=== PATIENT | male | born 1950 | race Caucasian/White ===

== ENCOUNTER → 2016-05-05 | Outpatient (REF) | payer OTHER ==
[2016-05-05 13:18] LABS: BASO % 0.3 % (0.0-1.0); EOS # 0.1 K/mm3 (0.0-0.50); EOS % 1.4 % (0.0-3.0); LARGE UNSTAINED CELL # 0.1 K/mm3 (0.0-0.4); LARGE UNSTAINED CELL % 1.9 % (0.0-4.0); LYMPH # 0.7 K/mm3 (1.5-4.5); LYMPH % 15.4 % (24.0-44.0); MEAN CORPUSCULAR HEMOGLOBIN 29.2 pg (27.0-33.0); MEAN CORPUSCULAR HGB CONC 32.8 g/dl (32.0-36.5); MEAN CORPUSCULAR VOLUME 88.9 fl (80.0-96.0); MONO # 0.3 K/mm3 (0.0-0.8); MONO % 7.4 % (0.0-5.0); NEUTROPHILS # 3.2 K/mm3 (1.8-7.7); NEUTROPHILS % 73.7 % (36.0-66.0); PLATELET COUNT, AUTOMATED 165 k/mm3 (150-450); RED CELL DISTRIBUTION WIDTH 13.8 % (11.5-14.5); WHITE BLOOD COUNT 4.3 K/mm3 (4.0-10.0)
[2016-05-05 14:12] LABS: ALBUMIN 3.3 GM/DL (3.2-5.2); ALBUMIN/GLOBULIN RATIO 0.87 (1.00-1.93); BILIRUBIN,TOTAL 0.4 MG/DL (0.2-1.0); CALCIUM LEVEL 8.7 MG/DL (8.8-10.2); CREATININE FOR GFR 1.5 MG/DL (0.70-1.30); GLOMERULAR FILTRATION RATE 50.2 (>49); POTASSIUM SERUM 3.2 MEQ/L (3.5-5.1); TOTAL PROTEIN 7.1 GM/DL (6.4-8.2)
== END ==
LOC: M LABDRAW1 12:57
PROVIDERS: ATTEND Internal Medicine Hematology & Oncology
DX: C64.9 Malignant neoplasm of unspecified kidney, except renal pelvis (principal)

== ENCOUNTER → 2016-06-24 | Outpatient (CLI) | payer BC, OTHER ==
[~2016-06-24] VITALS: Ht 180.3 cm; Wt 108.9 kg
[~2016-06-24] MED LIST: ASPI81TA85 PO; ATOR1TAB21 PO; CLAR5TAB PO; CO Q200C PO; FISH100049 PO; GLIM4TAB PO; INVO100T PO; METF-700 PO; NS 1,000 ML IV SCH; OPDI1INJ IV; PANT40TA2 PO; PLAV75TA38 PO; PROPOFOL 200 MG/20 ML VIAL As Ordered ONE; TOPR50TA PO; VALS1TAB47 PO; VITA100072 PO; VITA1CAP7 PO; [UNRECOGNIZED DRUG - CODE] PO; [UNRECOGNIZED DRUG - OTHER] PO
--- NOTE | 2016-06-24 10:47 | ROOR ---
Patient Name: Abimael Jamison Procedure Date: 06/24/2016 10:28 AM Date of : 1950 Age: 66 Room: [facility] Gender: Male Note Status: Finalized Procedure: Colonoscopy Indications: Screening for colorectal malignant neoplasm Providers: DO Moon Blanco MD: PABLO SOUZA MD Requesting Provider: Medicines: Propofol per Anesthesia Complications: No immediate complications. Estimated blood loss: None. Procedure: Pre-Anesthesia Assessment: - Prior to the procedure, a History and Physical was performed, and patient medications and allergies were reviewed. The patient is competent. The risks and benefits of the procedure and the sedation options and risks were discussed with the patient. All questions were answered and informed consent was obtained. Patient identification and proposed procedure were verified by the physician, the nurse, the anesthesiologist and the field technician in the endoscopy suite. Mental Status Examination: alert and oriented. Airway Examination: normal oropharyngeal airway and neck mobility. Respiratory Examination: clear to auscultation. CV Examination: normal. Prophylactic Antibiotics: The patient does not require prophylactic antibiotics. Prior Anticoagulants: The patient has taken aspirin, last dose was 1 day prior to procedure. ASA Grade Assessment: III - A patient with severe systemic disease. After reviewing the risks and benefits, the patient was deemed in satisfactory condition to undergo the procedure. The anesthesia plan was to use monitored anesthesia care (MAC). Immediately prior to administration of medications, the patient was re-assessed for adequacy to receive sedatives. The heart rate, respiratory rate, oxygen saturations, blood pressure, adequacy of pulmonary ventilation, and response to care were monitored throughout the procedure. The physical status of the patient was re-assessed after the procedure. The Colonoscope was introduced through the anus and advanced to the cecum, identified by the appendiceal orifice, ileocecal valve and palpation. The colonoscopy was performed without difficulty. The patient tolerated the procedure well. Findings: The perianal exam findings include non-thrombosed internal hemorrhoids and internal hemorrhoids that prolapse with straining, but spontaneously regress to the resting position (Grade II). Impression: - Non-thrombosed internal hemorrhoids and internal hemorrhoids that prolapse with straining, but spontaneously regress to the resting position (Grade II) found on perianal exam. - No specimens collected. Recommendation: - Patient has a contact number available for emergencies. The signs and symptoms of potential delayed complications were discussed with the patient. Return to normal activities tomorrow. Written discharge instructions were provided to the patient. - Patient has a contact number available for emergencies. The signs and symptoms of potential delayed complications were discussed with the patient. Return to normal activities tomorrow. Written discharge instructions were provided to the patient. - Repeat colonoscopy in 5-10 years for screening purposes. - Return to my office PRN. Kendrick Rai DO 06/24/2016 10:47:23 AM This report has been signed electronically. Number of Addenda: 0 Note Initiated On: 06/24/2016 10:28 AM Estimated Blood Loss: Estimated blood loss: none.
[2016-06-24 11:05] VITALS: BP 137/78
== END | disposition home or self-care (01) ==
LOC: M OPP 08:51
PROVIDERS: ATTEND Surgery
DX: Z12.11 Encounter for screening for malignant neoplasm of colon (principal); K64.1 Second degree hemorrhoids; K64.8 Other hemorrhoids; C64.1 Malignant neoplasm of right kidney, except renal pelvis; C78.01 Secondary malignant neoplasm of right lung; I10 Essential (primary) hypertension; E78.00 Pure hypercholesterolemia, unspecified; E11.9 Type 2 diabetes mellitus without complications; Z87.891 Personal history of nicotine dependence; Z95.5 Presence of coronary angioplasty implant and graft; Z79.82 Long term (current) use of aspirin; Z79.899 Other long term (current) drug therapy; Z79.84 Long term (current) use of oral hypoglycemic drugs
CPT/HCPCS: 99156; 99157; G0121

== ENCOUNTER → 2016-08-12 | Outpatient (REF) | payer BC, OTHER ==
[~2016-08-12] MED LIST changes: -NS 1,000 ML IV SCH; -PROPOFOL 200 MG/20 ML VIAL As Ordered ONE
== END ==
LOC: M LABDRAW1 11:44
PROVIDERS: ATTEND Physician Assistant Medical
DX: I25.10 Atherosclerotic heart disease of native coronary artery without angina pectoris (principal)

== ENCOUNTER → 2016-08-19 | Outpatient (REF) | payer BC, OTHER ==
[2016-08-19 13:00] LABS: BILIRUBIN,TOTAL 0.3 MG/DL (0.2-1.0); CALCIUM LEVEL 8.8 MG/DL (8.8-10.2); CREATININE FOR GFR 1.53 MG/DL (0.70-1.30); POTASSIUM SERUM 4.6 MEQ/L (3.5-5.1)
[2016-08-19 13:01] LABS: ALBUMIN 3.6 GM/DL (3.2-5.2); ALBUMIN/GLOBULIN RATIO 1.09 (1.00-1.93); TOTAL PROTEIN 6.9 GM/DL (6.4-8.2)
== END ==
LOC: M LABDRAW1 11:36
PROVIDERS: ATTEND Emergency Medicine
DX: E11.9 Type 2 diabetes mellitus without complications (principal); I10 Essential (primary) hypertension; E78.2 Mixed hyperlipidemia

== ENCOUNTER → 2016-11-20 | Outpatient (CLI) | payer BC, OTHER ==
[~2016-11-20] MED LIST changes: -CO Q200C PO; +CO Q200C10 PO; +PLAV1TAB2 PO; -PLAV75TA38 PO
[2016-11-20 09:34] LABS: ALBUMIN 3.9 GM/DL (3.2-5.2); ALBUMIN/GLOBULIN RATIO 1.03 (1.00-1.93); BILIRUBIN,TOTAL 0.5 MG/DL (0.2-1.0); CALCIUM LEVEL 9.5 MG/DL (8.8-10.2); CREATININE FOR GFR 1.47 MG/DL (0.70-1.30); GLOMERULAR FILTRATION RATE 51.3 (>49); POTASSIUM SERUM 4.6 MEQ/L (3.5-5.1); TOTAL PROTEIN 7.7 GM/DL (6.4-8.2)
== END ==
LOC: M WUC 08:02
PROVIDERS: ATTEND Emergency Medicine
DX: E11.9 Type 2 diabetes mellitus without complications (principal)

== ENCOUNTER → 2017-06-14 | Outpatient (REF) | payer BC, OTHER ==
[2017-06-14 13:06] LABS: ALBUMIN 3.6 GM/DL (3.2-5.2); ALBUMIN/GLOBULIN RATIO 0.97 (1.00-1.93); ALKALINE PHOSPHATASE 86 U/L (45-117); ALT/SGPT 18 U/L (12-78); ANION GAP 10 MEQ/L (8-16); AST/SGOT 10 U/L (7-37); BILIRUBIN,TOTAL 0.4 MG/DL (0.2-1.0); BLOOD UREA NITROGEN 22 MG/DL (7-18); CALCIUM LEVEL 9.4 MG/DL (8.8-10.2); CARBON DIOXIDE LEVEL 26 MEQ/L (21-32); CHLORIDE LEVEL 103 MEQ/L (98-107); CHOLESTEROL LEVEL 142 MG/DL (<200); CHOLESTEROL RISK RATIO 3.155 (<5); CREATININE FOR GFR 1.38 MG/DL (0.70-1.30); GLOMERULAR FILTRATION RATE 55.1 (>49); GLUCOSE, FASTING 184 MG/DL (70-100); HDL CHOLESTEROL 45 MG/DL (>40); LDL CHOLESTEROL 76.4 MG/DL (<100); NON-HDL-C 97 MG/DL; POTASSIUM SERUM 4.4 MEQ/L (3.5-5.1); SODIUM LEVEL 139 MEQ/L (136-145); TOTAL PROTEIN 7.3 GM/DL (6.4-8.2); TRIGLYCERIDES LEVEL 103 MG/DL (<150)
[2017-06-14 13:14] LABS: ESTIMATED AVERAGE GLUCOSE 194 MG/DL (60-110); HEMOGLOBIN A1c 8.4 %
[2017-06-14 13:33] LABS: MALB URINE SIEMENS 44.1 MG/L; MAU/CREAT RATIO 35.8 MCG/MG (0.0-30.0)
== END ==
LOC: M LAB REF 11:58
DX: E11.9 Type 2 diabetes mellitus without complications (principal); I10 Essential (primary) hypertension; E78.2 Mixed hyperlipidemia
CPT/HCPCS: 80053

== ENCOUNTER 2017-09-20 15:30 | Emergency (ER) | payer MEDICARE, BC, OTHER ==
[2017-09-20 14:33] LABS: BASO # 0.1 10^3/uL (0.0-0.2); BASO % 0.6 % (0.0-1.0); EOS # 0.2 10^3/uL (0.0-0.50); EOS % 2.2 % (0.0-3.0); HEMATOCRIT 42.1 % (42.0-52.0); HEMOGLOBIN 14.4 g/dl (13.5-17.5); IMMATURE GRANULOCYTE % 0.2 % (0-3.0); LYMPH # 1.7 10^3/uL (1.5-4.5); LYMPH % 19.1 % (24.0-44.0); MEAN CORPUSCULAR HEMOGLOBIN 27.5 pg (27.0-33.0); MEAN CORPUSCULAR HGB CONC 34.2 g/dl (32.0-36.5); MEAN CORPUSCULAR VOLUME 80.5 fl (80.0-96.0); MONO # 0.4 10^3/uL (0.0-0.8); MONO % 4.9 % (0.0-5.0); NEUTROPHILS # 6.6 10^3/uL (1.8-7.7); PLATELET COUNT, AUTOMATED 253 10^3/uL (150-450); RED BLOOD COUNT 5.23 10^6/uL (4.30-6.10)
[2017-09-20 15:12] LABS: ANION GAP 9 MEQ/L (8-16); BLOOD UREA NITROGEN 15 MG/DL (7-18); CALCIUM LEVEL 8.9 MG/DL (8.8-10.2); CARBON DIOXIDE LEVEL 24 MEQ/L (21-32); CHLORIDE LEVEL 102 MEQ/L (98-107); CK-MB VALUE MASS 2.5 NG/ML (<3.6); CPK CREATINE PHOSPHOKINASE 234 U/L (39-308); CREATININE FOR GFR 1.59 MG/DL (0.70-1.30); GLOMERULAR FILTRATION RATE 46.7 (>49); GLUCOSE, FASTING 164 MG/DL (70-100); MB/CK RELATIVE INDEX 1.06 (< OR =4); POTASSIUM SERUM 3.7 MEQ/L (3.5-5.1); SODIUM LEVEL 135 MEQ/L (136-145); TROPONIN I < 0.02 NG/ML (< 0.10)
== END 2017-09-20 17:53 | disposition short-term general hospital (02) ==
LOC: M ED 15:30
DX: I20.0 Unstable angina (principal); R91.8 Other nonspecific abnormal finding of lung field; I25.10 Atherosclerotic heart disease of native coronary artery without angina pectoris; I50.9 Heart failure, unspecified; E11.9 Type 2 diabetes mellitus without complications; I10 Essential (primary) hypertension; E78.5 Hyperlipidemia, unspecified; Z85.528 Personal history of other malignant neoplasm of kidney; Z85.118 Personal history of other malignant neoplasm of bronchus and lung; Z95.5 Presence of coronary angioplasty implant and graft; Z72.0 Tobacco use; Z79.82 Long term (current) use of aspirin; Z79.84 Long term (current) use of oral hypoglycemic drugs; Z79.899 Other long term (current) drug therapy
CPT/HCPCS: 71045

== ENCOUNTER 2017-11-03 14:10 | Inpatient (IN) | payer MEDICARE, BC, OTHER ==
[2017-11-03] MEDS: NS 500 ML IV (14:58)
[2017-11-03 15:07] LABS: BASO % 0.2 % (0.0-1.0); HEMATOCRIT 33.6 % (42.0-52.0); HEMOGLOBIN 12.1 g/dl (13.5-17.5); IMMATURE GRANULOCYTE % 0.4 % (0-3.0); LYMPH # 0.3 10^3/uL (1.5-4.5); LYMPH % 5.5 % (24.0-44.0); MEAN CORPUSCULAR HEMOGLOBIN 29.2 pg (27.0-33.0); MEAN CORPUSCULAR VOLUME 81.2 fl (80.0-96.0); MONO # 0.1 10^3/uL (0.0-0.8); MONO % 1.9 % (0.0-5.0); NEUTROPHILS # 4.8 10^3/uL (1.8-7.7); PLATELET COUNT, AUTOMATED 147 10^3/uL (150-450); RED BLOOD COUNT 4.14 10^6/uL (4.30-6.10); RED CELL DISTRIBUTION WIDTH 17.3 % (11.5-14.5); WHITE BLOOD COUNT 5.2 10^3/uL (4.0-10.0)
[2017-11-03 15:20] LABS: ANION GAP 14 MEQ/L (8-16); BLOOD UREA NITROGEN 21 MG/DL (7-18); CALCIUM LEVEL 8.4 MG/DL (8.8-10.2); CARBON DIOXIDE LEVEL 20 MEQ/L (21-32); CHLORIDE LEVEL 88 MEQ/L (98-107); CPK CREATINE PHOSPHOKINASE 859 U/L (39-308); CREATININE FOR GFR 1.71 MG/DL (0.70-1.30); GLUCOSE, FASTING 158 MG/DL (70-100); POTASSIUM SERUM 3.5 MEQ/L (3.5-5.1); SODIUM LEVEL 122 MEQ/L (136-145); TROPONIN I < 0.02 NG/ML (< 0.10)
[2017-11-03 15:21] LABS: CK-MB VALUE MASS 2.2 NG/ML (<3.6); MB/CK RELATIVE INDEX 0.25 (< OR =4)
[2017-11-03 15:26] LABS: POSITIVE DIFF POS FLAG
[2017-11-03 16:12] LABS: OSMOLALITY SERUM 262 MOSM/KG (280-301)
[2017-11-03 16:17] LABS: OSMOLALITY URINE 545 MOSM/KG (500-800)
[2017-11-03 16:19] LABS: AMORPHOUS SEDIMENT RFX SMALL (NEGATIVE); KETONE, URINE AUTO RFX NEGATIVE (NEGATIVE); LEUKOCYTE ESTERASE UR AUTO RFX NEGATIVE (NEGATIVE); MUCUS, URINE RFX SMALL (NEGATIVE); NITRITE, URINE AUTO RFX NEGATIVE (NEGATIVE); RBC, URINE AUTO RFX 6 /HPF (0-3); SPECIFIC GRAVITY UR AUTO RFX 1.017 (1.002-1.035); SQUAM EPITHELIAL CELL UR AURFX 0 /HPF (0-6); WBC, URINE AUTO RFX 3 /HPF (0-3)
[2017-11-03 16:26] LABS: SODIUM,RANDOM URINE 40 MEQ/L
[2017-11-03 16:34] LABS: FREE T4 1.54 NG/DL (0.76-1.46)
[2017-11-03] MEDS ORDERED: GLUCOSE 4 GM CHEW TABLET PO (18:30)
[2017-11-03] MEDS ORDERED: GLUCAGON FOR INJ 1 MG VIAL (J1610) SC (18:30)
[2017-11-03] MEDS ORDERED: DEXTROSE 50% 50 ML SYRINGE IV (18:30)
[2017-11-03] MEDS ORDERED: NYSTATIN 100,000 UNITS/GM TOPICAL PWD 15 GM TOP (18:45)
[2017-11-03] MEDS: ACETAMINOPHEN TAB 650MG DOSE (2X325MG) PO (18:46)
[2017-11-03] MEDS: NS 1,000 ML IV (18:46)
[2017-11-03] MEDS ORDERED: VANCOMYCIN HCL 1,000 MG, VIAL MATE ADAPTER 1 EACH in D5W 250 ML IV ×2 (19:15→21:30)
[2017-11-03 19:52] LABS: LACTIC ACID SEPSIS PROTOCOL 1.1 MMOL/L (0.4-2.0)
[2017-11-03] MEDS: PIPERACILLIN/TAZOBACTAM SOD 3.375 GM in D5W MINI-BAG PLUS 50 ML IV (20:33)
[2017-11-03] MEDS: HumaLOG INSULIN (NovoLOG) PER UNIT SC (21:00)
[2017-11-03] MEDS: HEPARIN SOD (PORCINE) 5000 UNITS/ML VIAL SC (22:00)
[2017-11-03] MEDS: metroNIDAZOLE (FLAGYL) 500 MG TAB PO (22:11)
[2017-11-03] MEDS: VANCOMYCIN HCL 1,000 MG, VIAL MATE ADAPTER 1 EACH in D5W 250 ML IV (22:12)
[2017-11-03] MEDS: FLUTICASONE HFA 220 MCG 12 GM INHALER (FLOVENT) INH (22:22)
[2017-11-03 22:41] LABS: BEDSIDE GLUCOSE 108 MG/DL (80-115)
[2017-11-04] MEDS: VANCOMYCIN HCL 1,000 MG, VIAL MATE ADAPTER 1 EACH in D5W 250 ML IV ×2 (00:01→10:07)
[2017-11-04 00:53] LABS: INFLUENZA A AMPLIFICATION NEGATIVE (NEGATIVE); INFLUENZA B AMPLIFICATION NEGATIVE (NEGATIVE)
[2017-11-04] MEDS: PIPERACILLIN/TAZOBACTAM SOD 3.375 GM in D5W MINI-BAG PLUS 50 ML IV ×3 (04:13→20:33)
[2017-11-04] MEDS: HEPARIN SOD (PORCINE) 5000 UNITS/ML VIAL SC ×2 (05:00→13:51)
[2017-11-04] MEDS: NS 1,000 ML IV (05:44)
[2017-11-04] MEDS: metroNIDAZOLE (FLAGYL) 500 MG TAB PO (05:44)
[2017-11-04] MEDS: ACETAMINOPHEN TAB 650MG DOSE (2X325MG) PO ×2 (05:45→17:01)
[2017-11-04] MEDS: MORPHINE 4 MG/ML 1ML VIAL/SYRINGE (J2270) IV (05:45)
[2017-11-04 05:53] LABS: EOS % 0.3 % (0.0-3.0); HEMATOCRIT 28.2 % (42.0-52.0); HEMOGLOBIN 10.2 g/dl (13.5-17.5); IMMATURE GRANULOCYTE % 0.3 % (0-3.0); LYMPH % 5.8 % (24.0-44.0); MEAN CORPUSCULAR HGB CONC 36.2 g/dl (32.0-36.5); MEAN CORPUSCULAR VOLUME 80.1 fl (80.0-96.0); MONO # 0.1 10^3/uL (0.0-0.8); MONO % 3.4 % (0.0-5.0); NEUTROPHILS # 2.6 10^3/uL (1.8-7.7); NEUTROPHILS % 90.2 % (36.0-66.0); PLATELET COUNT, AUTOMATED 118 10^3/uL (150-450); RED BLOOD COUNT 3.52 10^6/uL (4.30-6.10); RED CELL DISTRIBUTION WIDTH 17.4 % (11.5-14.5); WHITE BLOOD COUNT 2.9 10^3/uL (4.0-10.0)
[2017-11-04 05:57] LABS: LYMPH # 0.2 10^3/uL (1.5-4.5); POSITIVE DIFF POS FLAG
[2017-11-04 06:21] LABS: ALBUMIN 2.4 GM/DL (3.2-5.2); ALBUMIN/GLOBULIN RATIO 0.62 (1.00-1.93); ALKALINE PHOSPHATASE 75 U/L (45-117); ALT/SGPT 51 U/L (12-78); ANION GAP 13 MEQ/L (8-16); AST/SGOT 80 U/L (7-37); BILIRUBIN,TOTAL 1.4 MG/DL (0.2-1.0); BLOOD UREA NITROGEN 19 MG/DL (7-18); CALCIUM LEVEL 7.5 MG/DL (8.8-10.2); CARBON DIOXIDE LEVEL 22 MEQ/L (21-32); CHLORIDE LEVEL 91 MEQ/L (98-107); CHLORIDE LEVEL 92 MEQ/L (98-107); CPK CREATINE PHOSPHOKINASE 771 U/L (39-308); CREATININE FOR GFR 1.53 MG/DL (0.70-1.30); CREATININE FOR GFR 1.54 MG/DL (0.70-1.30); GLOMERULAR FILTRATION RATE 48.5 (>49); GLOMERULAR FILTRATION RATE 48.9 (>49); GLUCOSE, FASTING 114 MG/DL (70-100); GLUCOSE, FASTING 115 MG/DL (70-100); POTASSIUM SERUM 3.1 MEQ/L (3.5-5.1); POTASSIUM SERUM 3.2 MEQ/L (3.5-5.1); SODIUM LEVEL 126 MEQ/L (136-145); SODIUM LEVEL 127 MEQ/L (136-145); TOTAL PROTEIN 6.3 GM/DL (6.4-8.2)
[2017-11-04] MEDS: FLUTICASONE HFA 220 MCG 12 GM INHALER (FLOVENT) INH ×2 (07:33→21:00)
[2017-11-04] MEDS: HumaLOG INSULIN (NovoLOG) PER UNIT SC ×4 (07:56→21:00)
[2017-11-04] MEDS: CLOPIDOGREL 75 MG TAB PO (08:29)
[2017-11-04] MEDS: PANTOPRAZOLE 40MG TAB (PROTONIX) PO (08:29)
[2017-11-04] MEDS: VITAMIN D 1,000 INTERNATIONAL UNITS TABLET PO (08:29)
[2017-11-04] MEDS: ASPIRIN 81 MG ENTERIC TAB PO (08:29)
[2017-11-04] MEDS: OMEGA-3 1050MG CAPSULE PO (08:29)
[2017-11-04] MEDS: DESLORATADINE 5 MG TAB (CLARINEX) PO (08:30)
[2017-11-04] MEDS: METOPROLOL SUCC (TopROL XL) 50MG **XL** TAB PO (08:30)
[2017-11-04] MEDS: POTASSIUM CHLORIDE 10 MEQ SR TABLET PO (10:06)
[2017-11-04 10:53] LABS: ALBUMIN 2.5 GM/DL (3.2-5.2); ALBUMIN/GLOBULIN RATIO 0.76 (1.00-1.93); ALKALINE PHOSPHATASE 82 U/L (45-117); ALT/SGPT 54 U/L (12-78); AST/SGOT 87 U/L (7-37); BILIRUBIN,DIRECT 0.7 MG/DL (0.0-0.2); BILIRUBIN,TOTAL 1.3 MG/DL (0.2-1.0); MAGNESIUM LEVEL 1.5 MG/DL (1.8-2.4); TOTAL PROTEIN 5.8 GM/DL (6.4-8.2)
[2017-11-04 11:57] LABS: BEDSIDE GLUCOSE 147 MG/DL (80-115)
[2017-11-04] MEDS: MAG SULF 1GM/100ML (MAG RUN) 1 GM in APPROPRIATE DILUENT 1 EA IV ×3 (14:48→17:01)
[2017-11-04] MEDS: ENOXAPARIN 40 MG/0.4 ML SYRINGE (J1650) SC (15:58)
[2017-11-04 16:39] LABS: BEDSIDE GLUCOSE 152 MG/DL (80-115)
[2017-11-04 19:49] LABS: BEDSIDE GLUCOSE 197 MG/DL (80-115)
[2017-11-05] MEDS: ACETAMINOPHEN TAB 650MG DOSE (2X325MG) PO ×2 (02:28→17:53)
[2017-11-05] MEDS: PIPERACILLIN/TAZOBACTAM SOD 3.375 GM in D5W MINI-BAG PLUS 50 ML IV ×2 (05:25→12:48)
[2017-11-05 06:33] LABS: HEMATOCRIT 28.4 % (42.0-52.0); HEMOGLOBIN 10.3 g/dl (13.5-17.5); MEAN CORPUSCULAR HEMOGLOBIN 29.6 pg (27.0-33.0); MEAN CORPUSCULAR HGB CONC 36.3 g/dl (32.0-36.5); MEAN CORPUSCULAR VOLUME 81.6 fl (80.0-96.0); PLATELET COUNT, AUTOMATED 115 10^3/uL (150-450); RED BLOOD COUNT 3.48 10^6/uL (4.30-6.10); RED CELL DISTRIBUTION WIDTH 17.3 % (11.5-14.5); WHITE BLOOD COUNT 2.7 10^3/uL (4.0-10.0)
[2017-11-05 06:58] LABS: ALBUMIN 2.4 GM/DL (3.2-5.2); ALBUMIN/GLOBULIN RATIO 0.62 (1.00-1.93); ALKALINE PHOSPHATASE 140 U/L (45-117); ALT/SGPT 77 U/L (12-78); ANION GAP 13 MEQ/L (8-16); AST/SGOT 103 U/L (7-37); BILIRUBIN,DIRECT 0.6 MG/DL (0.0-0.2); BILIRUBIN,TOTAL 1.2 MG/DL (0.2-1.0); BLOOD UREA NITROGEN 21 MG/DL (7-18); CALCIUM LEVEL 7.8 MG/DL (8.8-10.2); CARBON DIOXIDE LEVEL 21 MEQ/L (21-32); CHLORIDE LEVEL 90 MEQ/L (98-107); GLUCOSE, FASTING 157 MG/DL (70-100); POTASSIUM SERUM 3.7 MEQ/L (3.5-5.1); SODIUM LEVEL 124 MEQ/L (136-145); TOTAL PROTEIN 6.3 GM/DL (6.4-8.2)
[2017-11-05 07:07] LABS: CREATININE FOR GFR 2.37 MG/DL (0.70-1.30); GLOMERULAR FILTRATION RATE 29.5 (>49)
[2017-11-05] MEDS: FLUTICASONE HFA 220 MCG 12 GM INHALER (FLOVENT) INH ×2 (07:21→20:35)
[2017-11-05] MEDS: ONDANSETRON 4MG/2ML VIAL (J2405) IV (09:41)
[2017-11-05] MEDS: HumaLOG INSULIN (NovoLOG) PER UNIT SC ×4 (09:43→20:36)
[2017-11-05] MEDS: ENOXAPARIN 40 MG/0.4 ML SYRINGE (J1650) SC (09:43)
[2017-11-05] MEDS: VITAMIN D 1,000 INTERNATIONAL UNITS TABLET PO (09:44)
[2017-11-05] MEDS: CLOPIDOGREL 75 MG TAB PO (09:44)
[2017-11-05] MEDS: METOPROLOL SUCC (TopROL XL) 50MG **XL** TAB PO (09:44)
[2017-11-05] MEDS: PANTOPRAZOLE 40MG TAB (PROTONIX) PO (09:44)
[2017-11-05] MEDS: DESLORATADINE 5 MG TAB (CLARINEX) PO (09:44)
[2017-11-05] MEDS: OMEGA-3 1050MG CAPSULE PO (09:44)
[2017-11-05] MEDS: ASPIRIN 81 MG ENTERIC TAB PO (09:45)
[2017-11-05] MEDS: NS 1,000 ML IV ×2 (11:09→20:49)
[2017-11-05 11:24] LABS: MAGNESIUM LEVEL 2.6 MG/DL (1.8-2.4)
[2017-11-05 11:30] LABS: BEDSIDE GLUCOSE 179 MG/DL (80-115)
[2017-11-05 16:52] LABS: BEDSIDE GLUCOSE 232 MG/DL (80-115)
[2017-11-05 19:38] LABS: BEDSIDE GLUCOSE 231 MG/DL (80-115)
[2017-11-05 20:26] LABS: ANION GAP 11 MEQ/L (8-16); BLOOD UREA NITROGEN 25 MG/DL (7-18); CARBON DIOXIDE LEVEL 21 MEQ/L (21-32); CHLORIDE LEVEL 94 MEQ/L (98-107); CREATININE FOR GFR 2.63 MG/DL (0.70-1.30); GLOMERULAR FILTRATION RATE 26.2 (>49); GLUCOSE, FASTING 201 MG/DL (70-100); POTASSIUM SERUM 3.4 MEQ/L (3.5-5.1); SODIUM LEVEL 126 MEQ/L (136-145)
[2017-11-05] MEDS: PIPERACILLIN/TAZOBACTAM SOD 2.25 GM in D5W MINI-BAG PLUS 50 ML IV (20:49)
[2017-11-06] MEDS: PIPERACILLIN/TAZOBACTAM SOD 2.25 GM in D5W MINI-BAG PLUS 50 ML IV ×4 (02:12→21:45)
[2017-11-06 06:00] LABS: HEMATOCRIT 27.9 % (42.0-52.0); MEAN CORPUSCULAR HEMOGLOBIN 29.2 pg (27.0-33.0); MEAN CORPUSCULAR HGB CONC 35.8 g/dl (32.0-36.5); MEAN CORPUSCULAR VOLUME 81.3 fl (80.0-96.0); PLATELET COUNT, AUTOMATED 110 10^3/uL (150-450); RED BLOOD COUNT 3.43 10^6/uL (4.30-6.10); RED CELL DISTRIBUTION WIDTH 17.2 % (11.5-14.5)
[2017-11-06] MEDS: ACETAMINOPHEN TAB 650MG DOSE (2X325MG) PO (06:07)
[2017-11-06 06:23] LABS: ANION GAP 11 MEQ/L (8-16); BLOOD UREA NITROGEN 25 MG/DL (7-18); CALCIUM LEVEL 7.1 MG/DL (8.8-10.2); CARBON DIOXIDE LEVEL 21 MEQ/L (21-32); CHLORIDE LEVEL 96 MEQ/L (98-107); CREATININE FOR GFR 2.87 MG/DL (0.70-1.30); GLOMERULAR FILTRATION RATE 23.6 (>49); GLUCOSE, FASTING 148 MG/DL (70-100); POTASSIUM SERUM 3.3 MEQ/L (3.5-5.1); SODIUM LEVEL 128 MEQ/L (136-145)
[2017-11-06] MEDS: VITAMIN D 1,000 INTERNATIONAL UNITS TABLET PO (08:08)
[2017-11-06] MEDS: CLOPIDOGREL 75 MG TAB PO (08:09)
[2017-11-06] MEDS: PANTOPRAZOLE 40MG TAB (PROTONIX) PO (08:09)
[2017-11-06] MEDS: POTASSIUM CHLORIDE 10 MEQ SR TABLET PO (08:09)
[2017-11-06] MEDS: ASPIRIN 81 MG ENTERIC TAB PO (08:10)
[2017-11-06] MEDS: OMEGA-3 1050MG CAPSULE PO (08:10)
[2017-11-06] MEDS: DESLORATADINE 5 MG TAB (CLARINEX) PO (08:13)
[2017-11-06] MEDS: METOPROLOL SUCC (TopROL XL) 50MG **XL** TAB PO (08:13)
[2017-11-06] MEDS: ENOXAPARIN 40 MG/0.4 ML SYRINGE (J1650) SC (08:15)
[2017-11-06] MEDS: HumaLOG INSULIN (NovoLOG) PER UNIT SC ×4 (08:17→20:26)
[2017-11-06] MEDS: FLUTICASONE HFA 220 MCG 12 GM INHALER (FLOVENT) INH ×2 (09:00→21:00)
[2017-11-06 11:57] LABS: AMYLASE 57 U/L (25-115); LIPASE 557 U/L (73-393)
[2017-11-06 12:30] LABS: BEDSIDE GLUCOSE 256 MG/DL (80-115)
[2017-11-06] MEDS: VANCOMYCIN HCL 1,000 MG, VIAL MATE ADAPTER 1 EACH in D5W 250 ML IV (15:27)
[2017-11-06 17:03] LABS: BEDSIDE GLUCOSE 250 MG/DL (80-115)
[2017-11-06 19:46] LABS: BEDSIDE GLUCOSE 249 MG/DL (80-115)
[2017-11-07] MEDS: PIPERACILLIN/TAZOBACTAM SOD 2.25 GM in D5W MINI-BAG PLUS 50 ML IV ×3 (02:48→16:35)
[2017-11-07 03:34] LABS: APPEARANCE, URINE CLEAR (CLEAR); BACTERIA, URINE AUTO 1+ (NEGATIVE); BILIRUBIN, URINE AUTO NEGATIVE (NEGATIVE); BLOOD, URINE BLOOD 1+ (NEGATIVE); COLOR, URINE YELLOW (YELLOW); GLUCOSE, URINE (UA) AUTO NEGATIVE (NEGATIVE); KETONE, URINE AUTO NEGATIVE (NEGATIVE); LEUKOCYTE ESTERASE, URINE AUTO NEGATIVE (NEGATIVE); MUCUS, URINE SMALL (NEGATIVE); NITRITE, URINE AUTO NEGATIVE (NEGATIVE); PROTEIN, URINE AUTO NEGATIVE (NEGATIVE); RBC, URINE AUTO 1 /HPF (0-3); SPECIFIC GRAVITY URINE AUTO 1.005 (1.002-1.035); SQUAMOUS EPITHELIAL CELL UR AU 0 /HPF (0-6); UROBILINOGEN, URINE AUTO 0.2 mg/dL (0.0-2.0); WBC, URINE AUTO 2 /HPF (0-3)
[2017-11-07 03:58] LABS: CREATININE,RANDOM URINE 63.9 MG/DL
[2017-11-07 03:58] LABS: TOTAL PROTEIN,RANDOM URINE 30.6 MG/DL (0.0-12.0)
[2017-11-07 06:03] LABS: HEMATOCRIT 26.2 % (42.0-52.0); HEMOGLOBIN 9.3 g/dl (13.5-17.5); MEAN CORPUSCULAR HGB CONC 35.5 g/dl (32.0-36.5); MEAN CORPUSCULAR VOLUME 81.6 fl (80.0-96.0); PLATELET COUNT, AUTOMATED 109 10^3/uL (150-450); RED BLOOD COUNT 3.21 10^6/uL (4.30-6.10); RED CELL DISTRIBUTION WIDTH 17.2 % (11.5-14.5); WHITE BLOOD COUNT 2.8 10^3/uL (4.0-10.0)
[2017-11-07 06:17] LABS: AMYLASE 64 U/L (25-115); ANION GAP 12 MEQ/L (8-16); BLOOD UREA NITROGEN 29 MG/DL (7-18); CALCIUM LEVEL 7.1 MG/DL (8.8-10.2); CARBON DIOXIDE LEVEL 19 MEQ/L (21-32); CHLORIDE LEVEL 96 MEQ/L (98-107); CREATININE FOR GFR 3.47 MG/DL (0.70-1.30); GLUCOSE, FASTING 184 MG/DL (70-100); LIPASE 795 U/L (73-393); POTASSIUM SERUM 3.2 MEQ/L (3.5-5.1); SODIUM LEVEL 127 MEQ/L (136-145)
[2017-11-07] MEDS: POTASSIUM CHLORIDE 10 MEQ SR TABLET PO (07:56)
[2017-11-07] MEDS: HumaLOG INSULIN (NovoLOG) PER UNIT SC ×4 (07:57→22:19)
[2017-11-07] MEDS: VITAMIN D 1,000 INTERNATIONAL UNITS TABLET PO (09:31)
[2017-11-07] MEDS: ENOXAPARIN 40 MG/0.4 ML SYRINGE (J1650) SC (09:32)
[2017-11-07] MEDS: ASPIRIN 81 MG ENTERIC TAB PO (09:32)
[2017-11-07] MEDS: OMEGA-3 1050MG CAPSULE PO (09:32)
[2017-11-07] MEDS: CLOPIDOGREL 75 MG TAB PO (09:32)
[2017-11-07] MEDS: DESLORATADINE 5 MG TAB (CLARINEX) PO (09:32)
[2017-11-07] MEDS: PANTOPRAZOLE 40MG TAB (PROTONIX) PO (09:32)
[2017-11-07] MEDS: METOPROLOL SUCC (TopROL XL) 50MG **XL** TAB PO (09:33)
[2017-11-07 09:46] LABS: ALBUMIN 2.2 GM/DL (3.2-5.2); ALBUMIN/GLOBULIN RATIO 0.61 (1.00-1.93); ALKALINE PHOSPHATASE 144 U/L (45-117); ALT/SGPT 70 U/L (12-78); AST/SGOT 64 U/L (7-37); BILIRUBIN,DIRECT 0.5 MG/DL (0.0-0.2); BILIRUBIN,TOTAL 0.7 MG/DL (0.2-1.0); TOTAL PROTEIN 5.8 GM/DL (6.4-8.2)
[2017-11-07] MEDS: NS 1,000 ML IV ×2 (11:22→23:11)
[2017-11-07] MEDS: SODIUM BICARBONATE 325 MG TAB PO ×3 (11:22→22:18)
[2017-11-07] MEDS ORDERED: FLUTICASONE HFA 220 MCG 12 GM INHALER (FLOVENT) INH (11:45)
[2017-11-07] MEDS: predniSONE 20 MG TAB PO (14:13)
[2017-11-07 16:45] LABS: BEDSIDE GLUCOSE 263 MG/DL (80-115)
[2017-11-07 20:09] LABS: BEDSIDE GLUCOSE 280 MG/DL (80-115)
[2017-11-07 20:11] LABS: BEDSIDE GLUCOSE 217 MG/DL (80-115)
[2017-11-08] MEDS: PIPERACILLIN/TAZOBACTAM SOD 2.25 GM in D5W MINI-BAG PLUS 50 ML IV ×2 (00:27→08:32)
[2017-11-08 03:36] LABS: CREATININE, URINE 37.6 MG/DL
[2017-11-08 04:19] LABS: TOTAL VOLUME, URINE 3000 ML
[2017-11-08 05:59] LABS: HEMATOCRIT 30.4 % (42.0-52.0); HEMOGLOBIN 10.5 g/dl (13.5-17.5); MEAN CORPUSCULAR HGB CONC 34.5 g/dl (32.0-36.5); PLATELET COUNT, AUTOMATED 168 10^3/uL (150-450); RED BLOOD COUNT 3.62 10^6/uL (4.30-6.10); RED CELL DISTRIBUTION WIDTH 17.9 % (11.5-14.5); WHITE BLOOD COUNT 2.6 10^3/uL (4.0-10.0)
[2017-11-08 06:16] LABS: ANION GAP 11 MEQ/L (8-16); BLOOD UREA NITROGEN 27 MG/DL (7-18); CALCIUM LEVEL 7.8 MG/DL (8.8-10.2); CARBON DIOXIDE LEVEL 19 MEQ/L (21-32); CHLORIDE LEVEL 101 MEQ/L (98-107); CREATININE FOR GFR 2.85 MG/DL (0.70-1.30); GLOMERULAR FILTRATION RATE 23.8 (>49); GLUCOSE, FASTING 313 MG/DL (70-100); POTASSIUM SERUM 4.1 MEQ/L (3.5-5.1); SODIUM LEVEL 131 MEQ/L (136-145)
[2017-11-08] MEDS: HumaLOG INSULIN (NovoLOG) PER UNIT SC ×4 (08:31→21:20)
[2017-11-08] MEDS: ENOXAPARIN 40 MG/0.4 ML SYRINGE (J1650) SC (08:32)
[2017-11-08] MEDS: predniSONE 20 MG TAB PO (08:32)
[2017-11-08] MEDS: CLOPIDOGREL 75 MG TAB PO (08:32)
[2017-11-08] MEDS: DESLORATADINE 5 MG TAB (CLARINEX) PO (08:32)
[2017-11-08] MEDS: VITAMIN D 1,000 INTERNATIONAL UNITS TABLET PO (08:32)
[2017-11-08] MEDS: OMEGA-3 1050MG CAPSULE PO (08:33)
[2017-11-08] MEDS: METOPROLOL SUCC (TopROL XL) 50MG **XL** TAB PO (08:33)
[2017-11-08] MEDS: SODIUM BICARBONATE 325 MG TAB PO ×3 (08:33→21:19)
[2017-11-08] MEDS: PANTOPRAZOLE 40MG TAB (PROTONIX) PO (08:33)
[2017-11-08] MEDS: ASPIRIN 81 MG ENTERIC TAB PO (08:35)
[2017-11-08 11:52] LABS: BEDSIDE GLUCOSE 350 MG/DL (80-115)
[2017-11-08 16:50] LABS: BEDSIDE GLUCOSE 375 MG/DL (80-115)
[2017-11-08 20:33] LABS: BEDSIDE GLUCOSE 440 MG/DL (80-115)
[2017-11-09 06:31] LABS: HEMATOCRIT 31.1 % (42.0-52.0); HEMOGLOBIN 10.6 g/dl (13.5-17.5); MEAN CORPUSCULAR HEMOGLOBIN 28.6 pg (27.0-33.0); MEAN CORPUSCULAR HGB CONC 34.1 g/dl (32.0-36.5); MEAN CORPUSCULAR VOLUME 84.1 fl (80.0-96.0); PLATELET COUNT, AUTOMATED 251 10^3/uL (150-450); RED CELL DISTRIBUTION WIDTH 18.4 % (11.5-14.5); WHITE BLOOD COUNT 4.1 10^3/uL (4.0-10.0)
[2017-11-09 06:46] LABS: ANION GAP 8 MEQ/L (8-16); BLOOD UREA NITROGEN 24 MG/DL (7-18); CARBON DIOXIDE LEVEL 23 MEQ/L (21-32); CHLORIDE LEVEL 106 MEQ/L (98-107); CREATININE FOR GFR 2.33 MG/DL (0.70-1.30); GLOMERULAR FILTRATION RATE 30.1 (>49); GLUCOSE, FASTING 255 MG/DL (70-100); POTASSIUM SERUM 3.9 MEQ/L (3.5-5.1); SODIUM LEVEL 137 MEQ/L (136-145)
[2017-11-09] MEDS: ENOXAPARIN 40 MG/0.4 ML SYRINGE (J1650) SC (08:13)
[2017-11-09] MEDS: DESLORATADINE 5 MG TAB (CLARINEX) PO (08:14)
[2017-11-09] MEDS: HumaLOG INSULIN (NovoLOG) PER UNIT SC ×2 (08:14→12:30)
[2017-11-09] MEDS: CLOPIDOGREL 75 MG TAB PO (08:15)
[2017-11-09] MEDS: ASPIRIN 81 MG ENTERIC TAB PO (08:15)
[2017-11-09] MEDS: predniSONE 20 MG TAB PO (08:15)
[2017-11-09] MEDS: SODIUM BICARBONATE 325 MG TAB PO (08:15)
[2017-11-09] MEDS: VITAMIN D 1,000 INTERNATIONAL UNITS TABLET PO (08:18)
[2017-11-09] MEDS: METOPROLOL SUCC (TopROL XL) 50MG **XL** TAB PO (08:18)
[2017-11-09] MEDS: OMEGA-3 1050MG CAPSULE PO (08:19)
[2017-11-09] MEDS: PANTOPRAZOLE 40MG TAB (PROTONIX) PO (08:19)
[2017-11-09] MEDS: LEVEMIR (INSULIN DETEMIR) 1 UNITS/0.01ML SC (09:00)
[2017-11-09 11:32] LABS: BEDSIDE GLUCOSE 187 MG/DL (80-115)
== END 2017-11-09 14:00 | disposition home or self-care (01) | DRG 690 ==
LOC: M ED 14:10 → M ED INP 18:25 → M MSPAV 21:45
DX: N10 Acute pyelonephritis (principal); M62.82 Rhabdomyolysis; E87.1 Hypo-osmolality and hyponatremia; C78.01 Secondary malignant neoplasm of right lung; E87.2 Acidosis; D84.9 Immunodeficiency, unspecified; N17.9 Acute kidney failure, unspecified; N18.3 Chronic kidney disease, stage 3 (moderate); D70.1 Agranulocytosis secondary to cancer chemotherapy; I12.9 Hypertensive chronic kidney disease with stage 1 through stage 4 chronic kidney disease, or unspecified chronic kidney disease; K21.9 Gastro-esophageal reflux disease without esophagitis; D69.6 Thrombocytopenia, unspecified; E55.9 Vitamin D deficiency, unspecified; E78.5 Hyperlipidemia, unspecified; I25.10 Atherosclerotic heart disease of native coronary artery without angina pectoris; E11.22 Type 2 diabetes mellitus with diabetic chronic kidney disease; Z92.21 Personal history of antineoplastic chemotherapy; Z90.5 Acquired absence of kidney; Z95.5 Presence of coronary angioplasty implant and graft; Z79.84 Long term (current) use of oral hypoglycemic drugs; Z79.82 Long term (current) use of aspirin; Z79.02 Long term (current) use of antithrombotics/antiplatelets; Z79.899 Other long term (current) drug therapy; Z85.528 Personal history of other malignant neoplasm of kidney

== ENCOUNTER → 2017-12-13 | Outpatient (REF) | payer MEDICARE, BC, OTHER ==
[2017-12-13 12:46] LABS: ALBUMIN 3.4 GM/DL (3.2-5.2); ALBUMIN/GLOBULIN RATIO 0.92 (1.00-1.93); ALKALINE PHOSPHATASE 80 U/L (45-117); ALT/SGPT 26 U/L (12-78); ANION GAP 10 MEQ/L (8-16); AST/SGOT 20 U/L (7-37); BILIRUBIN,TOTAL 0.3 MG/DL (0.2-1.0); BLOOD UREA NITROGEN 12 MG/DL (7-18); CALCIUM LEVEL 9.2 MG/DL (8.8-10.2); CARBON DIOXIDE LEVEL 26 MEQ/L (21-32); CHLORIDE LEVEL 108 MEQ/L (98-107); CHOLESTEROL LEVEL 143 MG/DL (<200); GLUCOSE, FASTING 167 MG/DL (70-100); HDL CHOLESTEROL 44 MG/DL (>40); LDL CHOLESTEROL 73.4 MG/DL (<100); NON-HDL-C 99 MG/DL; POTASSIUM SERUM 4.6 MEQ/L (3.5-5.1); SODIUM LEVEL 144 MEQ/L (136-145); TOTAL PROTEIN 7.1 GM/DL (6.4-8.2); TRIGLYCERIDES LEVEL 128 MG/DL (<150)
[2017-12-13 16:41] LABS: ESTIMATED AVERAGE GLUCOSE 217 MG/DL (60-110); HEMOGLOBIN A1c 9.2 %
== END ==
LOC: M LABDRAW1 09:01
DX: E11.9 Type 2 diabetes mellitus without complications (principal); E78.2 Mixed hyperlipidemia
CPT/HCPCS: 80053

== ENCOUNTER → 2018-02-23 | Outpatient (CLI) | payer MEDICARE, BC, OTHER ==
[~2018-02-23] MED LIST changes: -ASPI81TA85 PO; -ATOR1TAB21 PO; -CLAR5TAB PO; -CO Q200C10 PO; -FISH100049 PO; +GASTROGRAFIN SOLUTION 30ML (Q9963) As Ordered; -GLIM4TAB PO; -INVO100T PO; +ISOVUE-370 76% 100ML VIAL (Q9967) As Ordered; -METF-700 PO; -OPDI1INJ IV; -PANT40TA2 PO; -PLAV1TAB2 PO; -TOPR50TA PO; -VALS1TAB47 PO; -VITA100072 PO; -VITA1CAP7 PO; -[UNRECOGNIZED DRUG - CODE] PO; -[UNRECOGNIZED DRUG - OTHER] PO
== END ==
LOC: M RAD 11:22
DX: C64.9 Malignant neoplasm of unspecified kidney, except renal pelvis (principal)
CPT/HCPCS: Q9963

== ENCOUNTER → 2018-03-10 | Outpatient (REF) | payer MEDICARE, OTHER ==
[2018-03-10 19:19] LABS: BASO % 0.2 % (0.0-1.0); EOS # 0.1 10^3/uL (0.0-0.50); HEMATOCRIT 40.6 % (42.0-52.0); HEMOGLOBIN 13.1 g/dl (13.5-17.5); IMMATURE GRANULOCYTE % 0.3 % (0-3.0); LYMPH # 1.3 10^3/uL (1.5-4.5); LYMPH % 22.2 % (24.0-44.0); MEAN CORPUSCULAR HEMOGLOBIN 29.4 pg (27.0-33.0); MEAN CORPUSCULAR HGB CONC 32.3 g/dl (32.0-36.5); MEAN CORPUSCULAR VOLUME 91.2 fl (80.0-96.0); MONO # 0.3 10^3/uL (0.0-0.8); MONO % 4.8 % (0.0-5.0); NEUTROPHILS # 4.2 10^3/uL (1.8-7.7); NEUTROPHILS % 70.5 % (36.0-66.0); PLATELET COUNT, AUTOMATED 266 10^3/uL (150-450); RED BLOOD COUNT 4.45 10^6/uL (4.30-6.10); RED CELL DISTRIBUTION WIDTH 14.9 % (11.5-14.5); WHITE BLOOD COUNT 5.9 10^3/uL (4.0-10.0)
[2018-03-10 19:27] LABS: ANION GAP 8 MEQ/L (8-16); BLOOD UREA NITROGEN 17 MG/DL (7-18); CALCIUM LEVEL 9.2 MG/DL (8.8-10.2); CARBON DIOXIDE LEVEL 26 MEQ/L (21-32); CHLORIDE LEVEL 106 MEQ/L (98-107); GLUCOSE, FASTING 146 MG/DL (70-100); POTASSIUM SERUM 4.2 MEQ/L (3.5-5.1); SODIUM LEVEL 140 MEQ/L (136-145)
== END ==
LOC: M LABDRWAD 19:01
DX: N18.3 Chronic kidney disease, stage 3 (moderate) (principal)
CPT/HCPCS: 80048

== ENCOUNTER → 2018-05-25 | Outpatient (CLI) | payer MEDICARE, BC, OTHER ==
[~2018-05-25] MED LIST changes: +ASPI81TA85 PO; +ATOR1TAB21 PO; +CLAR5TAB PO; +CO Q200C10 PO; +FISH100049 PO; +FLUT22IN INH; -GASTROGRAFIN SOLUTION 30ML (Q9963) As Ordered; +GASTROGRAFIN SOLUTION 30ML (Q9963) As Ordered ONE; +GLIM4TAB PO; +INVO100T PO; -ISOVUE-370 76% 100ML VIAL (Q9967) As Ordered; +ISOVUE-370 76% 100ML VIAL (Q9967) As Ordered ONE; +MAGN1TAB25 PO; +METF-700 PO; +METF10004 PO; +METHPOW PO; +METO1TAB7 PO; +NITR0.4S14 SL; +NYST1POW9 TOP; +OPDI1INJ IV; +PANT40TA3 PO; +PLAV1TAB2 PO; +PRED10TA2 PO; +PRED20TA PO; +SUTE25CA PO; +TOPR50TA23 PO; +TRUL0.5I SC; +TRUL10IN SC; +VALS160T PO; +VALS1TAB47 PO; +VALSART/HCTZ PO; +VITA100072 PO; +VITA1CAP7 PO; +[UNRECOGNIZED DRUG - CODE] PO; +[UNRECOGNIZED DRUG - CODE] PO; +[UNRECOGNIZED DRUG - OTHER] PO
--- NOTE | 2018-05-25 14:05 | REP ---
CT ABDOMEN AND PELVIS WITH ORAL AND IV CONTRAST: TECHNIQUE: Axial contrast enhanced images from the lung bases to the pubic symphysis using 100 mL Isovue 370 intravenous contrast material with multiplanar reformations. COMPARISON: 02/23/2018 The liver, spleen, adrenals, pancreas and right kidney are again unremarkable in appearance with no new finding. Patient has had a prior left nephrectomy. No mass is seen in the left renal fossa. There are scattered atherosclerotic calcifications of the abdominal aorta without aneurysm. Scattered tiny subcentimeter periaortic lymph nodes appear essentially stable with no new adenopathy in the abdomen and pelvis. There is no free air or free fluid. No bowel wall thickening is seen. There is no evidence of appendicitis. No pelvis mass is seen. Urinary bladder is not well distended and not well evaluated. IMPRESSION: No change since the prior study. No acute finding. No new mass or adenopathy. Electronically Signed by Kendrick Kelsey MD 05/25/2018 05:21 P
--- NOTE | 2018-05-25 14:07 | REP ---
CT CHEST WITH IV CONTRAST: TECHNIQUE: Axial contrast enhanced images from the thoracic inlet to the upper abdomen using 100 mL Isovue 370 intravenous contrast material with multiplanar reformations. COMPARISON: 02/23/2018. Parenchymal masses are again seen in the right lung. An oval irregular mass in the posterior segment of the right upper lobe is essentially unchanged measuring approximately 4.6 x 2.6 cm. Ill-defined patchy opacity along the medial aspect of this mass seen on the prior study has now essentially resolved with some minimal residual. Just inferior to this there is an oval mass more laterally in the posterior segment of the right upper lobe measuring about 5.9 x 3.8 cm, also essentially unchanged. In the superior segment of the right lower lobe posteriorly a nodule is seen in a subpleural location which has decreased in size now measuring 1 cm in diameter, previously 1.4 cm. A 5 mm nodule in the right lower lobe more inferiorly just below the level of the hilum measures 5 mm, also mildly decreased in size. A cluster of irregular masses in the more inferior posterolateral right lower lobe are again noted. All of these have mildly decreased in size. The larger bilobed mass at this location posteriorly measures 3.5 x 2.2 cm, previously 3.9 x 2.5 cm. There is a new small right pleural effusion. No new nodules are seen on either side. There is a mildly enlarged precarinal lymph node 1.5 cm in short axis which appears slightly larger than on the prior study when it was 1.2 cm. There is right hilar adenopathy which is stable. Subcarinal subcentimeter lymph node is stable. Heart is normal in size. No pericardial effusion is seen. Scattered atherosclerotic calcifications are seen of the thoracic aorta without aneurysm. There are degenerative changes of the spine. IMPRESSION: Multiple parenchymal masses on the right as discussed in detail above. Two large right upper lobe masses are essentially unchanged. Several right lower lobe masses have mildly decreased in size. There is a new small right pleural effusion. Right hilar adenopathy is stable. There is slight increase in size of a precarinal lymph node. Electronically Signed by Kendrick Kelsey MD 05/25/2018 05:21 P
== END ==
LOC: M RAD 11:00
PROVIDERS: ATTEND Internal Medicine Hematology & Oncology
DX: C67.9 Malignant neoplasm of bladder, unspecified (principal); J90 Pleural effusion, not elsewhere classified; R59.0 Localized enlarged lymph nodes
CPT/HCPCS: 71260; 74177; Q9963; Q9967

== ENCOUNTER → 2018-07-04 | Outpatient (REF) | payer MEDICARE, OTHER ==
[~2018-07-04] MED LIST changes: -GASTROGRAFIN SOLUTION 30ML (Q9963) As Ordered ONE; -ISOVUE-370 76% 100ML VIAL (Q9967) As Ordered ONE
[2018-07-04 12:46] LABS: ALBUMIN 3.5 GM/DL (3.2-5.2); BILIRUBIN,TOTAL 0.5 MG/DL (0.2-1.0); CALCIUM LEVEL 8.5 MG/DL (8.8-10.2); CHOLESTEROL RISK RATIO 3.166 (<5); CREATININE FOR GFR 1.29 MG/DL (0.70-1.30); GLOMERULAR FILTRATION RATE 59.3 (>49); POTASSIUM SERUM 4.7 MEQ/L (3.5-5.1)
[2018-07-04 12:50] LABS: TOTAL 25(OH) VITAMIN D 46.3 NG/ML (30.0-100.0)
== END ==
LOC: M LABDRAW1 12:11
PROVIDERS: ATTEND Nurse Practitioner Family
DX: E78.5 Hyperlipidemia, unspecified (principal); E55.9 Vitamin D deficiency, unspecified

== ENCOUNTER → 2018-09-05 | Outpatient (CLI) | payer MEDICARE, BC, OTHER ==
[~2018-09-05] MED LIST changes: +AMLO10TA5 PO; +D-3-50003 PO; +GASTROGRAFIN SOLUTION 30ML (Q9963) As Ordered ONE; +ISOVUE-370 76% 100ML VIAL (Q9967) As Ordered ONE; +LANTINJ4 SC; -MAGN1TAB25 PO; +MAGN1TAB26 PO; +NOVOINJ3; +TOPR50TA PO; -TOPR50TA23 PO; -VALS1TAB47 PO; +VALS1TAB67 PO; +VITA100018 PO; -VITA100072 PO; -VITA1CAP7 PO
--- NOTE | 2018-09-06 09:21 | REP ---
CT ABDOMEN AND PELVIS WITH ORAL AND IV CONTRAST: TECHNIQUE: Axial contrast enhanced images from the lung bases to the pubic symphysis using 100 mL Isovue 370 intravenous contrast material with multiplanar reformations. The patient has had a left nephrectomy previously. The liver, spleen, adrenals, pancreas, and right kidney are unremarkable in appearance. There is no right hydronephrosis. There is mild atherosclerotic calcification of the abdominal aorta without aneurysm. No significant periaortic adenopathy is seen. There is no free air or free fluid. There is no bowel wall thickening. There is no evidence of appendicitis. No pelvic mass is seen. The urinary bladder is mildly distended and grossly unremarkable. There are degenerative changes of the spine with no definite bone lesion. IMPRESSION: No change since prior study. No new mass or adenopathy. Electronically Signed by Kendrick Kelsey MD 09/07/2018 02:39 P
--- NOTE | 2018-09-06 09:22 | REP ---
CT CHEST WITH IV CONTRAST: TECHNIQUE: Axial contrast enhanced images from the thoracic inlet to the upper abdomen using 100 mL Isovue 370 intravenous contrast material with multiplanar reformations. COMPARISON: 05/25/2018. Multiple parenchymal masses are again seen throughout the right lung. These have all mildly increased in size. A large mass in the posterior segment of the right upper lobe measures 5.7 x 4.0 cm, previously 4.8 x 3.1 cm. Another large mass just inferolateral to that measures 6.0 x 4.7 cm, previously 5.8 x 3.6 cm. There is mild increased size of a small nodule in the right lower lobe on image 51. There is a conglomerate of nodules more inferiorly in the right lower lobe which have increased in size. There is a moderate right pleural effusion which has increased in size. No nodular opacities are seen in the left lung. A precarinal lymph node has a short axis dimension of 1.4 cm, unchanged. There are mildly enlarged right hilar lymph nodes which are stable. Heart is normal in size. There is no pericardial effusion. There are mild atelectatic changes in the right lung base. IMPRESSION: Increased size of moderate right pleural effusion. Multiple parenchymal masses in the right lung have mildly increased in size since prior study of 05/25/2018 as discussed in detail above. There is mild mediastinal and right hilar adenopathy which is stable. Electronically Signed by Kendrick Kelsey MD 09/07/2018 02:40 P
== END ==
LOC: M RAD 15:48
PROVIDERS: ATTEND Internal Medicine Hematology & Oncology
DX: C64.9 Malignant neoplasm of unspecified kidney, except renal pelvis (principal); J90 Pleural effusion, not elsewhere classified; R91.8 Other nonspecific abnormal finding of lung field; Z90.5 Acquired absence of kidney; I70.0 Atherosclerosis of aorta
CPT/HCPCS: 71260; 74177; Q9963; Q9967

== ENCOUNTER → 2018-09-09 | Outpatient (REF) | payer MEDICARE, OTHER ==
[~2018-09-09] MED LIST changes: -GASTROGRAFIN SOLUTION 30ML (Q9963) As Ordered ONE; -ISOVUE-370 76% 100ML VIAL (Q9967) As Ordered ONE
[2018-09-09 13:16] LABS: CALCIUM LEVEL 8.8 MG/DL (8.8-10.2); CREATININE FOR GFR 1.37 MG/DL (0.70-1.30); GLOMERULAR FILTRATION RATE 55.3 (>49); POTASSIUM SERUM 4.1 MEQ/L (3.5-5.1)
== END ==
LOC: M LABDRWAD 12:20
PROVIDERS: ATTEND Internal Medicine Interventional Cardiology
DX: R06.02 Shortness of breath (principal)

== ENCOUNTER → 2018-09-16 | Outpatient (REF) | payer MEDICARE, OTHER | LOC: M LABDRWAD 12:37 | PROVIDERS: ATTEND Internal Medicine Critical Care Medicine | DX: J95.89 Other postprocedural complications and disorders of respiratory system, not elsewhere classified (principal); J90 Pleural effusion, not elsewhere classified ==

== ENCOUNTER 2018-09-25 09:45 | Emergency (ER) | payer MEDICARE, BC, OTHER ==
[~2018-09-25] VITALS: Ht 180.3 cm; Wt 114.3 kg
[2018-09-25] MEDS ORDERED: PROAAER10 (10:06)
[2018-09-25] MEDS ORDERED: IPRATROPIUM 0.5MG/ALBUTEROL 2.5MG INH SOL UD 3ML (DUONEB)(J7620) NEB ONE (10:15)
[2018-09-25] MEDS ORDERED: ALBUTEROL SULFATE 2.5 MG/0.5 ML INH NEB SOLN INH ONE (10:15)
[2018-09-25] MEDS ORDERED: methylPREDNISolone INJ 125 MG/2 ML VIAL (J2930) IV ONE (10:15)
--- NOTE | 2018-09-25 10:23 | REP ---
Clinical: Effusion. Comparison: 08/03/2018. Findings: Lsicyfmr-[id number] right pleural effusion is appreciated along with lower lobe opacities and larger right mass lesions. Left hemithorax appears clear. No pneumothorax. Visualize cardiac silhouette and mediastinum are stable. Skeletal structures are intact. Impression: 1. New [id number]-[id number] right pleural effusion and right lower lobe atelectasis. 2. Right mass lesions are essentially stable. Electronically Signed by Israel Martin MD 09/25/2018 10:14 A
[2018-09-25 10:25] LABS: BASO % 0.2 % (0.0-1.0); EOS % 0.7 % (0.0-3.0); HEMATOCRIT 36.4 % (42.0-52.0); HEMOGLOBIN 12.1 g/dl (13.5-17.5); LYMPH # 1.1 10^3/uL (1.5-4.5); LYMPH % 18.9 % (24.0-44.0); MEAN CORPUSCULAR HEMOGLOBIN 33.1 pg (27.0-33.0); MEAN CORPUSCULAR HGB CONC 33.2 g/dl (32.0-36.5); MEAN CORPUSCULAR VOLUME 99.5 fl (80.0-96.0); MONO # 0.4 10^3/uL (0.0-0.8); MONO % 6.9 % (0.0-5.0); NEUTROPHILS # 4.1 10^3/uL (1.8-7.7); NEUTROPHILS % 72.9 % (36.0-66.0); PLATELET COUNT, AUTOMATED 313 10^3/uL (150-450); RED BLOOD COUNT 3.66 10^6/uL (4.30-6.10); WHITE BLOOD COUNT 5.7 10^3/uL (4.0-10.0)
[2018-09-25 11:03] LABS: ABG BASE EXCESS -1.4 (-2.0-2.0); ABG HCO3 21.3 MEQ/L (22.0-26.0); ABG O2 SATURATION 95.9 % (95.0-99.0); ABG PARTIAL PRESSURE CO2 29.8 mmHg (35.0-45.0); ABG STANDARD HCO3 23.3 MEQ/L (22.0-26.0); ABG TOTAL CO2 22.2 MEQ/L (23.0-31.0); ABG pH (ARTERIAL) 7.472 UNITS (7.350-7.450)
[2018-09-25 11:10] LABS: ALBUMIN 2.9 GM/DL (3.2-5.2); ALT/SGPT 32 U/L (12-78); BILIRUBIN,DIRECT < 0.1 MG/DL (0.0-0.2); BILIRUBIN,TOTAL 0.6 MG/DL (0.2-1.0); BLOOD UREA NITROGEN 8 MG/DL (7-18); CALCIUM LEVEL 8.9 MG/DL (8.8-10.2); CARBON DIOXIDE LEVEL 22 MEQ/L (21-32); CHLORIDE LEVEL 108 MEQ/L (98-107); CPK CREATINE PHOSPHOKINASE 197 U/L (39-308); GLOMERULAR FILTRATION RATE > 60.0 (>49); GLUCOSE, FASTING 121 MG/DL (70-100); MAGNESIUM LEVEL 1.8 MG/DL (1.8-2.4); MB/CK RELATIVE INDEX 0.76 (< OR =4); NT-PRO BNP 55 PG/ML (<125); POTASSIUM SERUM 5.3 MEQ/L (3.5-5.1); SODIUM LEVEL 138 MEQ/L (136-145); THYROXINE (T4) 10.4 UG/DL (4.5-12.0); TOTAL PROTEIN 6.8 GM/DL (6.4-8.2); TROPONIN I < 0.02 NG/ML (< 0.10)
--- NOTE | 2018-09-25 11:12 | REP ---
Clinical: Abnormal chest x-ray findings. Technique: Axial noncontrast images from the thoracic inlet to the upper abdomen with coronal and sagittal re-formations. Comparison: 09/05/2018. Findings: Large partially loculated pleural effusion is again noted and slightly increased from prior examination. Underlying areas of consolidation and atelectasis have increased as well. Ill-defined mass lesions are poorly differentiated from surrounding areas of consolidation and effusion due to the lack of contrast but appear relatively similar. Mediastinal and suspected right hilar adenopathy again noted and essentially unchanged. Thoracic aorta, pulmonary vasculature, and heart/pericardium remains stable. Surrounding musculoskeletal structures are intact without focal osseous abnormality. Limited upper abdomen demonstrates normal bilateral adrenal glands. Impression: 1. Large partially loculated right pleural effusion and scattered areas of atelectasis/consolidation appears slightly increased from prior examination. 2. Known right sided mass lesions and mediastinal/hilar adenopathy are grossly similar to prior examination. Electronically Signed by Israel Martin MD 09/25/2018 11:04 A
[2018-09-25 11:13] LABS: INR 0.91; PROTHROMBIN TIME 12.3 SECONDS (12.1-14.4)
[2018-09-25 13:15] VITALS: BP 164/97
--- NOTE | 2018-09-25 19:38 | ECGEPIP ---
[facility] - ED Test Date: 2018-09-25 Pat Name: ANNY PIKE Department: Room: - Gender: Male Relationship Advisor: devin : 1950 Requested By: Esther Meadows Order Number: [id number] Reading MD: Esther Meadows Measurements Intervals [place] Rate: 103 P: 57 [place]: 186 QRS: QRSD: 76 T: 16 QT: 330 QTc: 433 Interpretive Statements SINUS TACHYCARDIA BORDERLINE LEFT AXIS DEVIATION ABNORMAL RHYTHM ECG DELAYED R WAVE PROGRESSION NONSPECIFIC ST T WAVE CHANGES 08/03/[address] T WAVE CHANGES Electronically Signed on 09-25-2018 19:38:00 EDT by Esther Meadows
== END 2018-09-25 13:21 | disposition short-term general hospital (02) ==
LOC: M ED 09:45
DX: C64.9 Malignant neoplasm of unspecified kidney, except renal pelvis (principal); C79.9 Secondary malignant neoplasm of unspecified site; J90 Pleural effusion, not elsewhere classified; R06.00 Dyspnea, unspecified; R00.0 Tachycardia, unspecified; R94.31 Abnormal electrocardiogram [ECG] [EKG]; Z79.82 Long term (current) use of aspirin; Z79.4 Long term (current) use of insulin; Z79.899 Other long term (current) drug therapy
CPT/HCPCS: 36415; 71045; 71250; 80048; 80076; 82550; 82553; 82803; 83735; 83880; 84436; 84443; 84484; 85025; 85610; 87040; 93005; 93041; 94640; 96374; 99285; J2930

== ENCOUNTER → 2018-10-18 | Outpatient (CLI) | payer MEDICARE, BC, OTHER ==
[~2018-10-18] MED LIST changes: +PROAAER10
--- NOTE | 2018-10-18 17:08 | REP ---
Chest x-ray: Two views. History: Pleurx catheter on the right. Right-sided pleuritic pain. Comparison chest x-ray September 25, 2018. Comparison chest CT study September 25, 2018. Findings: There are three pulmonary parenchymal masses on the right. The largest of these are in the upper lobe region measuring 6.1 and 5.8 cm respectively. A right-sided Pleurx catheter is noted in place. There is no discernible pleural effusion. There is some discoid atelectasis versus fibrosis in the right and left base. No left pleural effusion is seen. No left-sided infiltrate is seen. Heart is not enlarged. Impression: Pleurx catheter in place. No right pleural effusion is seen. Multiple parenchymal mass lesions in the right lung. Electronically Signed by Jose Cruz Woorduff MD 10/19/2018 07:54 A
== END ==
LOC: M ADAMS 14:35
PROVIDERS: ATTEND Internal Medicine Sleep Medicine
DX: R91.8 Other nonspecific abnormal finding of lung field (principal)

== ENCOUNTER → 2018-12-05 | Outpatient (REF) | payer MEDICARE, OTHER ==
[2018-12-05 13:25] LABS: ALBUMIN 3.8 GM/DL (3.2-5.2); BLOOD UREA NITROGEN 8 MG/DL (7-18); CALCIUM LEVEL 9.7 MG/DL (8.8-10.2); CARBON DIOXIDE LEVEL 26 MEQ/L (21-32); CHLORIDE LEVEL 103 MEQ/L (98-107); CREATININE FOR GFR 1.24 MG/DL (0.70-1.30); GLOMERULAR FILTRATION RATE > 60.0 (>49); GLUCOSE, FASTING 127 MG/DL (70-100); PHOSPHORUS LEVEL 4.2 MG/DL (2.5-4.9); POTASSIUM SERUM 4.6 MEQ/L (3.5-5.1); SODIUM LEVEL 138 MEQ/L (136-145)
[2018-12-05 13:26] LABS: BASO % 0.5 % (0.0-1.0); EOS # 0.2 10^3/uL (0.0-0.50); EOS % 2.4 % (0.0-3.0); HEMATOCRIT 40.5 % (42.0-52.0); HEMOGLOBIN 13.1 g/dl (13.5-17.5); LYMPH # 1.1 10^3/uL (1.5-4.5); LYMPH % 14.7 % (24.0-44.0); MEAN CORPUSCULAR HEMOGLOBIN 28.5 pg (27.0-33.0); MEAN CORPUSCULAR HGB CONC 32.3 g/dl (32.0-36.5); MEAN CORPUSCULAR VOLUME 88.2 fl (80.0-96.0); MONO # 0.4 10^3/uL (0.0-0.8); MONO % 5.2 % (0.0-5.0); NEUTROPHILS # 5.9 10^3/uL (1.8-7.7); NEUTROPHILS % 76.9 % (36.0-66.0); PLATELET COUNT, AUTOMATED 384 10^3/uL (150-450); RED BLOOD COUNT 4.59 10^6/uL (4.30-6.10); WHITE BLOOD COUNT 7.6 10^3/uL (4.0-10.0)
== END ==
LOC: M LABDRWAD 12:37
PROVIDERS: ATTEND Physician Assistant
DX: K57.32 Diverticulitis of large intestine without perforation or abscess without bleeding (principal)

== ENCOUNTER → 2019-03-23 | Outpatient (REF) | payer MEDICARE, OTHER ==
[~2019-03-23] MED LIST changes: -GLIM4TAB PO; +GLIM4TAB3 PO
[2019-03-23 17:38] LABS: HEMATOCRIT 39.3 % (42.0-52.0); HEMOGLOBIN 12.2 g/dl (13.5-17.5); MEAN CORPUSCULAR HEMOGLOBIN 26.6 pg (27.0-33.0); MEAN CORPUSCULAR VOLUME 85.8 fl (80.0-96.0); PLATELET COUNT, AUTOMATED 488 10^3/uL (150-450); RED BLOOD COUNT 4.58 10^6/uL (4.30-6.10); WHITE BLOOD COUNT 14.1 10^3/uL (4.0-10.0)
[2019-03-23 18:04] LABS: HEMOGLOBIN A1c 9.5 %
[2019-03-23 18:14] LABS: ALBUMIN 3.6 GM/DL (3.2-5.2); BILIRUBIN,TOTAL 0.3 MG/DL (0.2-1.0); CALCIUM LEVEL 9.9 MG/DL (8.8-10.2); CREATININE FOR GFR 1.32 MG/DL (0.70-1.30); FREE T4 0.97 NG/DL (0.76-1.46); GLOMERULAR FILTRATION RATE 57.8 (>49); MAGNESIUM LEVEL 2.1 MG/DL (1.8-2.4); POTASSIUM SERUM 5.1 MEQ/L (3.5-5.1); THYROID STIMULATING HORMONE 3.27 uIU/ML (0.358-3.740); TOTAL 25(OH) VITAMIN D 35.9 NG/ML (30.0-100.0); TOTAL PROTEIN 7.2 GM/DL (6.4-8.2)
== END ==
LOC: M SFHCADAM 16:24
PROVIDERS: ATTEND Family Medicine
DX: C64.2 Malignant neoplasm of left kidney, except renal pelvis (principal); E11.3293 Type 2 diabetes mellitus with mild nonproliferative diabetic retinopathy without macular edema, bilateral; E78.2 Mixed hyperlipidemia; E55.9 Vitamin D deficiency, unspecified; E53.8 Deficiency of other specified B group vitamins; I11.9 Hypertensive heart disease without heart failure
CPT/HCPCS: 80053; 80061; 82306; 82607; 83036; 83735; 84439; 84443; 85027; G0463

== ENCOUNTER → 2019-04-10 | Outpatient (CLI) | payer MEDICARE, OTHER ==
--- NOTE | 2019-04-10 17:51 | REP ---
RIGHT FOOT, FOUR VIEWS: Four views of the right foot are performed. There is no acute fracture or dislocation. Mild joint space narrowing and subchondral sclerosis at the first metatarsal phalangeal joint. There appears to be diffuse narrowing of the interphalangeal joint. IMPRESSION: Mild degenerative changes as above. Electronically Signed by Kendrick Kelsey MD 04/12/2019 10:23 A
== END ==
LOC: M ADAMS 15:34
PROVIDERS: ATTEND Physician Assistant
DX: M79.671 Pain in right foot (principal)

== ENCOUNTER → 2019-04-18 | Outpatient (CLI) | payer MEDICARE, OTHER ==
--- NOTE | 2019-04-18 14:30 | REP ---
REASON FOR EXAM: Shoulder pain. No priors. I have not been given the history of trauma. There are chronic changes seen involving the acromioclavicular joint with a large osteophyte arising from the distal clavicle superior cortex at the AC joint. The glenohumeral relationship is within normal limits. There is no evidence of any acute fracture, dislocation or subluxation. IMPRESSION: Chronic changes suspected as described above. Electronically Signed by Baldev Goldberg DO 04/18/2019 03:29 P
== END ==
LOC: M ADAMS 13:07
PROVIDERS: ATTEND Physician Assistant Medical
DX: M25.712 Osteophyte, left shoulder (principal)

== ENCOUNTER → 2019-04-24 | Outpatient (REF) | payer MEDICARE, OTHER ==
[2019-04-24 16:00] LABS: BLOOD UREA NITROGEN 12 MG/DL (7-18); CREATININE FOR GFR 1.13 MG/DL (0.70-1.30); GLOMERULAR FILTRATION RATE > 60.0 (>49)
== END ==
LOC: M LABDRAW1 15:30
PROVIDERS: ATTEND Orthopaedic Surgery Hand Surgery
DX: M25.512 Pain in left shoulder (principal)

== ENCOUNTER → 2019-05-05 | Outpatient (CLI) | payer MEDICARE, BC, OTHER ==
--- NOTE | 2019-05-05 19:50 | REP ---
MRI left shoulder without and with IV gadolinium: History: Pain in the left shoulder. Rule out rotator cuff tear. Known history of renal cell carcinoma with metastatic disease. Comparison radiographs are from April 18, 2019. Technique: Axial, oblique coronal and oblique sagittal imaging planes are utilized. T1 and T2-weighted scans were obtained in the usual fashion with and without fat saturation. Gadolinium enhancement dose is 20 mL of intravenous ProHance. MRI findings: Cortical and medullary bone signal intensity is normal. There is no evidence to suggest skeletal metastatic disease or bony destructive lesion. There is subcortical cyst formation in the superolateral humeral head which is a finding that can correlate with impingement. There is osteoarthritic hypertrophy at the AC joint with a small quantity of joint fluid indicating osteoarthritis. There is minimal inferolateral acromion process spurring. Diffuse swelling and increased signal intensity is seen in the supraspinatus tendon on oblique coronal T1-weighted scans consistent with tendinosis change. There is no evidence of focal rotator cuff tear. The infraspinatus and subscapularis tendons appear intact. Biceps tendon is in the bony bicipital groove and appears to be intact. There is no evidence of anterior or posterior labral cartilage tear. The superior labral cartilage appears intact. No loose body is seen. There is some diffuse thinning of the glenoid and humeral head articular cartilage consistent with chondromalacia. Postcontrast images show no abnormal gadolinium enhancement. Impression: Supraspinatus tendinosis change. 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 Electronically Signed by Jose Cruz Woodruff MD 05/06/2019 08:18 A
== END ==
LOC: M PLARAD 14:00
PROVIDERS: ATTEND Orthopaedic Surgery Hand Surgery
DX: M25.812 Other specified joint disorders, left shoulder (principal); M19.012 Primary osteoarthritis, left shoulder; M25.512 Pain in left shoulder

== ENCOUNTER 2019-05-23 11:15 | Inpatient (IN) | payer MEDICARE, BC, OTHER ==
[~2019-05-23] VITALS: Ht 180.3 cm; Wt 102.3 kg
[~2019-05-23 11:15] MED LIST changes: -GLIM4TAB3 PO; +GLIM4TAB5 PO; -NOVOINJ3; +NOVOINJ3 SC; -VALS160T PO; +VALS160T2 PO
[2019-05-23] MEDS ORDERED: INLY5TAB PO (11:47)
[2019-05-23 12:20] LABS: BASO % 0.3 % (0.0-1.0); EOS # 0.1 10^3/uL (0.0-0.5); EOS % 1.6 % (0.0-3.0); HEMATOCRIT 38.9 % (42.0-52.0); LYMPH # 1.1 10^3/uL (1.5-5.0); LYMPH % 15.1 % (24.0-44.0); MEAN CORPUSCULAR HEMOGLOBIN 25.8 pg (27.0-33.0); MEAN CORPUSCULAR HGB CONC 30.8 g/dl (32.0-36.5); MEAN CORPUSCULAR VOLUME 83.7 fl (80.0-96.0); MONO # 0.5 10^3/uL (0.0-0.8); MONO % 6.2 % (0.0-5.0); NEUTROPHILS # 5.8 10^3/uL (1.5-8.5); NEUTROPHILS % 76.5 % (36.0-66.0); PLATELET COUNT, AUTOMATED 275 10^3/uL (150-450); RED BLOOD COUNT 4.65 10^6/uL (4.30-6.10); WHITE BLOOD COUNT 7.6 10^3/uL (4.0-10.0)
--- NOTE | 2019-05-23 12:21 | REP ---
Portable chest, 12:02 p.m., single AP view with the patient upright: Comparison is for a 07/20/2018. The patient's known right lung nodules have increased in size. The left lung is clear and unchanged. No infiltrates or pleural effusions are identified. Cardiac size is normal. Deysi, mediastinum, skeletal structures are unremarkable. Impression: Enlarging right lung nodules. Electronically Signed by Kendrick Vaz MD 05/23/2019 12:13 P
[2019-05-23] MEDS ORDERED: MAG100TA PO (12:22)
[2019-05-23] MEDS ORDERED: [UNRECOGNIZED DRUG - CODE] PO (12:22)
[2019-05-23] MEDS ORDERED: LOPR1TAB7 PO (12:22)
[2019-05-23] MEDS ORDERED: TRUL0.5I SC (12:22)
[2019-05-23] MEDS ORDERED: CLOP75TA2 PO (12:22)
[2019-05-23] MEDS ORDERED: TRAM50TA2 PO (12:35)
[2019-05-23 12:46] LABS: BLOOD UREA NITROGEN 10 MG/DL (7-18); CALCIUM LEVEL 9.5 MG/DL (8.8-10.2); CARBON DIOXIDE LEVEL 21 MEQ/L (21-32); CHLORIDE LEVEL 104 MEQ/L (98-107); CK-MB VALUE MASS < 1.0 NG/ML (<3.6); CPK CREATINE PHOSPHOKINASE 49 U/L (39-308); CREATININE FOR GFR 1.12 MG/DL (0.70-1.30); GLOMERULAR FILTRATION RATE > 60.0 (>49); GLUCOSE, FASTING 160 MG/DL (70-100); MB/CK RELATIVE INDEX 2.04 (< OR =4); POTASSIUM SERUM 4.3 MEQ/L (3.5-5.1); SODIUM LEVEL 135 MEQ/L (136-145); TROPONIN I < 0.02 NG/ML (< 0.10)
[2019-05-23] MEDS ORDERED: ISOVUE-370 76% 100ML VIAL (Q9967) As Ordered ONE (13:00)
[2019-05-23 13:15] LABS: INR 1.11; PROTHROMBIN TIME 14.1 SECONDS (11.8-14.0)
--- NOTE | 2019-05-23 13:41 | REP ---
CT of the chest with IV contrast, pulmonary artery angiography protocol: Comparisons are the chest CT without IV contrast dated 09/25/[address] of the chest with IV contrast dated 09/05/2018. There are no emboli in the pulmonary trunk or central pulmonary arteries. There are no emboli in the pulmonary lobe or segment branches. The previous right pleural effusion has decreased in size. The known right lung masses are not significantly changed in size. The right hilar and mediastinal adenopathy has not significantly changed. Left lung remains clear. There are no lytic, blastic or destructive skeletal changes. No rib fractures are identified. The right lung masses are pleural-based. The thoracic aorta is unremarkable. Cardiac size is normal. The visualized upper abdominal contents are unremarkable. Impression: There are no pulmonary emboli. The right pleural effusion has significantly decreased. The known right lung masses are not significantly changed in size. These masses appear to be pleural based. The right hilar and mediastinal adenopathy has not significantly changed. The visualized upper abdominal contents are unremarkable. Electronically Signed by Kendrick Vaz MD 05/23/2019 01:32 P
[2019-05-23] MEDS ORDERED: ACETAMINOPHEN 325 MG TAB PO ONE (14:15)
[2019-05-23] MEDS ORDERED: DEXTROSE 50% 50 ML SYRINGE IV STA (14:30)
[2019-05-23] MEDS ORDERED: FISH1000 PO (14:36)
[2019-05-23] MEDS ORDERED: VITA500079 PO (14:36)
[2019-05-23] MEDS ORDERED: METO50TA7 PO (14:36)
[2019-05-23] MEDS ORDERED: OXYC-517 PO (14:39)
[2019-05-23] MEDS ORDERED: traMADol 50 MG TAB PO PRN (15:15)
[2019-05-23] MEDS ORDERED: MOM 30ML SUSPENSION UDC PO PRN (15:15)
[2019-05-23] MEDS ORDERED: NITROGLYCERIN 0.4 MG SUBL TABLET SL PRN (15:15)
[2019-05-23] MEDS ORDERED: ACETAMINOPHEN TAB 650MG DOSE (2X325MG) PO PRN (15:15)
[2019-05-23] MEDS ORDERED: MAALOX 30 ML SUSP *UDC PO PRN (15:15)
[2019-05-23] MEDS ORDERED: NYSTATIN 100,000 UNITS/GM TOPICAL PWD 15 GM TOP PRN (15:15)
[2019-05-23] MEDS ORDERED: LEVALBUTEROL 1.25 MG/0.5 ML CONCENTRATE NEB INH PRN (15:15)
[2019-05-23] MEDS ORDERED: oxyCODONE 5MG TAB PO PRN (15:15)
--- NOTE | 2019-05-23 15:27 | HPEPDOC ---
General Date of Admission 05/23/19 Date of Service: May 23, 2019 Chief Complaint The patient is a 69-year-old male admitted with a reason for visit of Chest Discomfort. Source: Patient Exam Limitations: No limitations Timing/Duration: Other (4 days) Severity: Mild Associated Symptoms: Other (hemoptysis) History of Present Illness This is a 69 years old pleasant white male with past medical history of hypertension, COPD, stage III, coronary artery disease status post multiple stents since August 2017, diabetes mellitus type 2. Metastatic renal carcinoma status post left nephrectomy, history of metastases to lungs and brain, status post, radiation to brain presented with chief complaints of hemoptysis since last Wednesday. According to patient when he lies down he feels bubbling in the lungs followed by expectoration of blood only, which was followed by class lead on but not mixed with sputum since last 4 days. Patient denies any chest pain, shortness of breath, nausea, vomiting, diarrhea, abdominal pain, headache, syncope, etc. Home Medications Scheduled Amlodipine Besylate (Amlodipine Besylate) 10 Mg Tab, 10 MG PO DAILY, (Reported) Aspirin (Aspir 81) 81 Mg Tab, 81 MG PO DAILY, (Reported) Atorvastatin Calcium (Atorvastatin Calcium) 20 Mg Tab, 20 MG PO QHS, (Reported) Axitinib (Inlyta) 5 Mg Tablet, 5 MG PO DAILY, (Reported) Cholecalciferol (Vitamin D3) (Vitamin D3) 5,000 Unit Tab.rapdis, 5,000 UNIT PO DAILY, (Reported) Clopidogrel Bisulfate (Clopidogrel) 75 Mg Tablet, 75 MG PO DAILY, (Reported) Dulaglutide (Trulicity) 1.5 Mg/0.5 Ml Pen.injctr, 1.5 MG SC QWEEK, (Reported) TAKES EVERY WEDNESDAY Glimepiride (Glimepiride) 4 Mg Tab, 8 MG PO DAILY, (Reported) Glutamine (l-Glutamine) 1 Pow Pow, 1 DOSE PO DAILY, (Reported) Insulin Aspart (Novolog Flexpen) 100 Unit/Ml Inj, 1 DOSE SC BID, (Reported) PER SLIDING SCALE AT LUNCH AND DINNER Insulin Glargine,Hum.rec.anlog (Lantus Solostar) 100 Unit/Ml Inj, 16 UNITS SC BID, (Reported) Magnesium Glycinate (Mag Glycinate) 100 Mg Tablet, 400 MG PO DAILY, (Reported) Mecobalamin (Methylcobalamin) 1 Gm Powder, 1 GM PO DAILY, (Reported) Metoprolol Tartrate (Metoprolol Tartrate) 50 Mg Tablet, 50 MG PO BID, (Reported) [place]-3 Fatty Acids/Fish Oil (Fish Oil 1,000 mg Capsule) 1 Each Capsule, 1,000 MG PO DAILY, (Reported) Pantoprazole Sodium (Pantoprazole Sodium) 40 Mg Tab, 40 MG PO DAILY, (Reported) Ubidecarenone (Co Q-10) 200 Mg Cap, 200 MG PO DAILY, (Reported) Scheduled PRN Nitroglycerin (Nitroglycerin) 0.4 Mg Sub, 0.4 MG SL Q5MP PRN for CHEST PAIN, (Reported) Nystatin (Nystatin Powder) 100,000 Unit/Gm Pow, 1 DOSE TOP DAILY PRN for RASH/ITCHING, (Reported) LEGS/GROIN AREA Oxycodone HCl (Oxycodone HCl) 5 Mg Tablet, 5 MG PO Q6H PRN for PAIN, (Reported) Tramadol HCl (Tramadol HCl) 50 Mg Tablet, 50 MG PO BID PRN for PAIN LEVEL 5-10, (Reported) Allergies Coded Allergies: TAPE (Verified Allergy, Unknown, WHITE ADHESIVE TAPE, 05/23/19) Past Medical History Medical History Hypertension, CK D, stage III, diabetes mellitus type 2. Metastatic renal cell carcinoma status post left nephrectomy, CAD status post PCI and multiple stents Surgical History Status post left nephrectomy Family History Significant Family History: No pertinent family hx Social History * Smoker: former Smoker Alcohol: Denies Drugs: denies A-FIB/CHADSVASC A-FIB History Current/History of A-Fib/PAF?: No Review of Systems Constitutional: Denies: Chills, Fever, Malaise, Night Sweats, Weakness, Fatigue, Weight Loss, Lethargy, Other Eyes: Denies: Pain, Vision change, Conjunctivae inflammation, Eyelid inflammation, Redness, Other ENT: Denies: Head Aches, Ear Pain, Dysphagia, Sinus Congestion, Post Nasal Drip, Sore Throat, Epistaxis, Other Symptoms Skin: Denies: Rash, Lesions, Jaundice, Bruising, Itching, Dry, Breakdown, Nail Changes, Other Cardiovascular: Denies: Chest Pain, Palpitations, Orthopnea, Paroxysmal Noc. Dyspnea, Edema, Lt Headedness, Other Symptoms Gastrointestinal: Denies: Nausea, Vomiting, Abdominal Pain, Diarrhea, Constipation, Melena, Hematochezia, Other Symptoms Genitourinary: Denies: Dysuria, Frequency, Incontinence, Hematuria, Retention, Other Symptoms Hematologic: Denies: Bruising, Bleeding Excessively, Petecchia, Purpura, Enlarged Lymph Nodes, Other Hematologic Endocrine: Denies: Polydipsia, Polyphagia, Polyuria, Heat Intolerance, Cold Intolerance, Other Endocrine Sx Musculoskeletal: Denies: Neck Pain, Back Pain, Shoulder Pain, Arm Pain, Hand Pain, Leg Pain, Foot Pain, Joint Pain, Muscle Pain, Spasms, Other Symptoms Neurological: Denies: Weakness, Numbness, Incoordination, Change in speech, Confusion, Seizures, Other Symptoms Psych: Denies: Mood Normal, Anxiety, Depression, Memory Issues, Thoughts of Self Harm, Anger, Thoughts of Harming Other, Other Psych Physical Examination General Exam: Positive: Alert Eye Exam: Positive: PERRLA, Conjunctiva & lids normal ENT Exam: Positive: Atraumatic, Mucous membr. moist/pink Neck Exam: Positive: Supple Chest Exam: Positive: Clear to auscultation Heart Exam: Positive: Rate Normal, Normal S1, Normal S2 Abdomen Exam: Positive: Normal bowel sounds, Soft Extremity Exam: Positive: Normal pulses Skin Exam: Positive: Nl turgor and temperature Neuro Exam: Positive: Strength at 5/5 X4 ext, Cranial Nerves 3-12 NL Psych Exam: Positive: Mood NL Vital Signs Vital Signs Date Time Temp Pulse Resp B/P (MAP) Pulse Ox O2 Delivery O2 Flow Rate FiO2 05/23/19 13:45 68 20 98 Room Air 05/23/19 13:30 123/80 (94) 05/23/19 11:16 97.5 Laboratory Data Labs 24H Laboratory Tests 2 05/23/19 12:01: Prothrombin Time 14.1H, Prothromb Time International Ratio 1.11, Activated Partial Thromboplast Time 27.0 05/23/19 12:02: Immature Granulocyte % (Auto) 0.3, Neutrophils (%) (Auto) 76.5H, Lymphocytes (%) (Auto) 15.1L, Monocytes (%) (Auto) 6.2H, Eosinophils (%) (Auto) 1.6, Basophils (%) (Auto) 0.3, Neutrophils # (Auto) 5.8, Lymphocytes # (Auto) 1.1L, Monocytes # (Auto) 0.5, Eosinophils # (Auto) 0.1, Basophils # (Auto) 0.0, Nucleated Red Blood Cells % (auto) 0.0, Anion Gap 10, Glomerular Filtration Rate > 60.0, Calcium Level 9.5, Total Creatine Kinase 49, Creatine Kinase MB < 1.0, Creatine Kinase MB Relative Index 2.04, Troponin I < 0.02 05/23/19 14:24: Bedside Glucose (Misc Panel) 55L CBC/BMP Laboratory Tests 05/23/19 12:02 Problems (1) Hemoptysis Status: Acute Problem Text: 69 years old white male with past medical history of CAD status post cardiac stents, hypertension, COPD 3 diabetes mellitus. Metastatic renal cell carcinoma status post left nephrectomy, lung and brain metastases, status post gamma radiation to brain metastases recently came with chief complaints of hemoptysis, which is painless, not associated with any other symptoms. Patient. WBC count 7.6, hemoglobin 12, hematocrit 38.9, platelets 270s. 5. Electrolytes are normal with BUN of 10, creatinine 1.12 CT of chest shows no PE, small right effusion, which is significantly decreased and altered right lung mass which has not changed in size even though chest x- ray suggest otherwise increase in size. Patient's hemoptysis which is painless, not is limited under the symptoms since last 4 days, most likely secondary to lung mass which was diagnosed with metastasis from renal cell carcinoma in the past Admit to Medr floor CBC, CMP in a.m Sputum for cytology and cultures Xopenex when necessary Hold Plavix but continue aspirin Continue all other home meds Monitor clinically. If hemoptysis continues, then might need consultation with rochelle kerr. Patient follows up with his oncologist at [facility] DVT prophylaxis with bilateral SCDs Consistent carbohydrate diet Activity as tolerated (2) Renal cell carcinoma Status: Chronic Problem Text: As above (3) HTN (hypertension) Status: Chronic Problem Text: Continue home meds (4) Diabetes mellitus Status: Chronic Problem Text: Fingerstick blood sugar every before meals and at bedtime with coverage Continue insulin glargine at home dosage (5) CKD (chronic kidney disease), stage III Status: Chronic Problem Text: Continue home meds (6) CAD (coronary artery disease) Status: Chronic Problem Text: Continue aspirin, but will hold Plavix secondary to hemoptysis Continue all other meds Plan / VTE VTE Prophylaxis Ordered?: Yes GODWIN AGUILLON MD May 23, 2019 15:27
[2019-05-23 16:11] VITALS: BP 121/64
[2019-05-23] MEDS ORDERED: DEXTROSE 50% 50 ML SYRINGE IV PRN (19:30)
[2019-05-23] MEDS ORDERED: GLUCAGON FOR INJ 1 MG VIAL (J1610) SC PRN (19:30)
[2019-05-23] MEDS ORDERED: GLUCOSE 4 GM CHEW TABLET PO PRN (19:30)
--- NOTE | 2019-05-23 20:57 | ECGEPIP ---
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
[2019-05-23] MEDS ORDERED: LEVEMIR (INSULIN DETEMIR) 1 UNITS/0.01ML SC SCH (21:00)
[2019-05-23] MEDS: HumaLOG INSULIN (NovoLOG) PER UNIT SC SCH (21:00)
[2019-05-23] MEDS: DOCUSATE SODIUM 100 MG CAP PO SCH (21:34)
[2019-05-23] MEDS: ATORVASTATIN 20 MG TAB PO SCH (21:34)
[2019-05-23] MEDS: METOPROLOL TART 50 MG TAB PO SCH (21:34)
[2019-05-23 22:00] VITALS: BP 141/83
[2019-05-24 06:00] VITALS: BP 111/70
[2019-05-24 06:37] LABS: HEMATOCRIT 40.2 % (42.0-52.0); HEMOGLOBIN 12.2 g/dl (13.5-17.5); MEAN CORPUSCULAR HEMOGLOBIN 25.5 pg (27.0-33.0); MEAN CORPUSCULAR HGB CONC 30.3 g/dl (32.0-36.5); MEAN CORPUSCULAR VOLUME 83.9 fl (80.0-96.0); PLATELET COUNT, AUTOMATED 301 10^3/uL (150-450); RED BLOOD COUNT 4.79 10^6/uL (4.30-6.10); WHITE BLOOD COUNT 8.4 10^3/uL (4.0-10.0)
[2019-05-24 07:02] LABS: ALBUMIN 3.1 GM/DL (3.2-5.2); ALT/SGPT 19 U/L (12-78); BILIRUBIN,TOTAL 0.4 MG/DL (0.2-1.0); BLOOD UREA NITROGEN 11 MG/DL (7-18); CALCIUM LEVEL 9.1 MG/DL (8.8-10.2); CARBON DIOXIDE LEVEL 25 MEQ/L (21-32); CHLORIDE LEVEL 103 MEQ/L (98-107); CREATININE FOR GFR 1.08 MG/DL (0.70-1.30); GLOMERULAR FILTRATION RATE > 60.0 (>49); GLUCOSE, FASTING 148 MG/DL (70-100); POTASSIUM SERUM 3.9 MEQ/L (3.5-5.1); SODIUM LEVEL 136 MEQ/L (136-145); TOTAL PROTEIN 7.4 GM/DL (6.4-8.2)
[2019-05-24] MEDS ORDERED: GLIMEPIRIDE 2 MG TAB PO SCH (08:00)
[2019-05-24] MEDS: HumaLOG INSULIN (NovoLOG) PER UNIT SC SCH ×4 (08:47→21:00)
[2019-05-24] MEDS: amLODIPine 10 MG TAB PO SCH (08:48)
[2019-05-24] MEDS: METOPROLOL TART 50 MG TAB PO SCH ×2 (08:48→22:24)
[2019-05-24] MEDS: ASPIRIN 81 MG ENTERIC TAB PO SCH (08:48)
[2019-05-24] MEDS: DOCUSATE SODIUM 100 MG CAP PO SCH ×2 (08:49→22:24)
[2019-05-24] MEDS: PANTOPRAZOLE 40MG TAB (PROTONIX) PO SCH (08:49)
--- NOTE | 2019-05-24 09:32 | IPNPDOC ---
Subjective Date Seen The patient was seen on 05/24/19. Subjective Chief Complaint/HPI c/o some SOB last night, but resolved now. Less hemoptysis - now just blood tinged sputum. C/O new tender nodule on left clavicle this am Constitutional: Denies: Chills, Fever Pulmonary: Reports: Dyspnea, Cough Cardiovascular: Denies: Chest Pain, Palpitations, Orthopnea Gastrointestinal: Denies: Nausea, Vomiting, Abdominal Pain, Diarrhea, Constipation Objective Physical Examination General Exam: Positive: Alert, No Acute Distress Neck Exam: Positive: Supple, Other (Approx 1 1/2 cm firm tender nodule over medial aspect of left clavicle) Chest Exam: Positive: Clear to auscultation; Negative: Rales, Rhonchi, Wheezing Heart Exam: Positive: Rate Normal, Normal S1, Normal S2 Abdomen Exam: Positive: Normal bowel sounds, Soft; Negative: Tenderness Skin Exam: Positive: Nl turgor and temperature Neuro Exam: Positive: Normal Speech Psych Exam: Positive: Mental status NL, Mood NL Assessment /Plan Problems (1) Clavicle pain Status: Acute Problem Text: Patient states this is new this morning - very tender. Not erythematous. Firm Has cyst in left humeral head per recent MRI shoulder 05/05/19 and on top of right foot, but this area on the clavicle is firm and tender get US (2) Hemoptysis Status: Acute Problem Text: CT angio chest c/w 08/2018: The known right lung masses are not significantly changed in size. These masses appear to be pleural based. The right hilar and mediastinal adenopathy has not significantly changed. The visualized upper abdominal contents are unremarkable Hgb held. Less copious hemotysis today Plavix held on admission consider Pulmonary consult (3) Metastatic renal cell carcinoma to lung Status: Chronic (4) CAD (coronary artery disease) Status: Chronic Response to Treatment: Stable Problem Text: s/p stent in 2018 - plavix held due to hemoptysis Cont ASA, Atorvastatin and Lopressor (5) CKD (chronic kidney disease), stage III Status: Chronic Response to Treatment: Stable (6) HTN (hypertension) Status: Chronic Response to Treatment: Stable (7) Diabetes mellitus Status: Chronic Response to Treatment: Stable Problem Text: Cont SSRI for now Trulicity on hold - blood sugars adequate control in hospital Plan/VTE VTE Prophylaxis Ordered?: Yes VTE Exclusion Pharmacological: Active Bleeding VS, I&O, 24H, Mamadou Vital Signs/I&O Vital Signs Date Time Temp Pulse Resp B/P (MAP) Pulse Ox O2 Delivery O2 Flow Rate FiO2 05/24/19 08:48 84 122/62 05/24/19 06:00 97.9 18 98 Room Air I&O- Last 24 Hours up to 6 AM 05/24/19 06:00 Intake Total 620 ml Output Total 350 ml Balance 270 ml Laboratory Data 24H LABS Laboratory Tests 2 05/23/19 12:01: Prothrombin Time 14.1H, Prothromb Time International Ratio 1.11, Activated Partial Thromboplast Time 27.0 05/23/19 12:02: Immature Granulocyte % (Auto) 0.3, Neutrophils (%) (Auto) 76.5H, Lymphocytes (%) (Auto) 15.1L, Monocytes (%) (Auto) 6.2H, Eosinophils (%) (Auto) 1.6, Basophils (%) (Auto) 0.3, Neutrophils # (Auto) 5.8, Lymphocytes # (Auto) 1.1L, Monocytes # (Auto) 0.5, Eosinophils # (Auto) 0.1, Basophils # (Auto) 0.0, Nucleated Red Blood Cells % (auto) 0.0, Anion Gap 10, Glomerular Filtration Rate > 60.0, Calcium Level 9.5, Total Creatine Kinase 49, Creatine Kinase MB < 1.0, Creatine Kinase MB Relative Index 2.04, Troponin I < 0.02 05/23/19 14:24: Bedside Glucose (Misc Panel) 55L 05/23/19 15:39: Bedside Glucose (Misc Panel) 227H 05/23/19 21:07: Bedside Glucose (Misc Panel) 215H 05/24/19 06:03: Nucleated Red Blood Cells % (auto) 0.0, Anion Gap 8, Glomerular Filtration Rate > 60.0, Calcium Level 9.1, Total Bilirubin 0.4, Aspartate Amino Transf (AST/SGOT) 16, Alanine Aminotransferase (ALT/SGPT) 19, Alkaline Phosphatase 94, Total Protein 7.4, Albumin 3.1L, Albumin/Globulin Ratio 0.72L 05/24/19 06:17: Bedside Glucose (Misc Panel) 148H CBC/BMP Laboratory Tests 05/23/19 12:02 05/24/19 06:03 Microbiology Microbiology 05/24/19 Gram Stain, Received Pending 05/24/19 Sputum Culture, Received Pending VICTORINA PUENTE PA-C May 24, 2019 09:32
--- NOTE | 2019-05-24 10:36 | REP ---
Left clavicle two views: Study is correlated with the chest CT dated 05/23/2019. There is focal discontinuity of the anterior cortex at the head of the left clavicle with adjacent soft tissue prominence. The findings are nonspecific and could represent fracture with adjacent soft tissue edema of the left clavicular head or could represent a soft tissue mass of the left clavicular head. Followup MRI might be considered. There is a calcification superior to the distal left clavicle. The acromioclavicular joint, likely a degenerative ligamentous calcification. Left clavicle is otherwise unremarkable. Impression: There are findings at the left clavicular head as described. There is likely degenerative ligamentous calcification superior to the distal left clavicle. Electronically Signed by Kendrick Vaz MD 05/24/2019 10:27 A
[2019-05-24 14:00] VITALS: BP 115/67
[2019-05-24] MEDS ORDERED: PROHANCE 279.3MG/ML 5ML VIAL (A9576) As Ordered ONE (21:35)
[2019-05-24] MEDS ORDERED: PROHANCE 279.3MG/ML 15ML VIAL (A9576) As Ordered ONE (21:35)
[2019-05-24 22:00] VITALS: BP 137/70
[2019-05-24] MEDS: ATORVASTATIN 20 MG TAB PO SCH (22:22)
[2019-05-25 06:00] VITALS: BP 112/58
[2019-05-25 07:07] LABS: HEMATOCRIT 36.6 % (42.0-52.0); HEMOGLOBIN 11.2 g/dl (13.5-17.5); MEAN CORPUSCULAR HEMOGLOBIN 25.7 pg (27.0-33.0); MEAN CORPUSCULAR HGB CONC 30.6 g/dl (32.0-36.5); MEAN CORPUSCULAR VOLUME 83.9 fl (80.0-96.0); PLATELET COUNT, AUTOMATED 278 10^3/uL (150-450); RED BLOOD COUNT 4.36 10^6/uL (4.30-6.10); WHITE BLOOD COUNT 6.5 10^3/uL (4.0-10.0)
[2019-05-25 08:49] VITALS: BP 116/71
[2019-05-25] MEDS: ASPIRIN 81 MG ENTERIC TAB PO SCH (08:49)
[2019-05-25] MEDS: METOPROLOL TART 50 MG TAB PO SCH (08:49)
[2019-05-25] MEDS: PANTOPRAZOLE 40MG TAB (PROTONIX) PO SCH (08:49)
[2019-05-25] MEDS: amLODIPine 10 MG TAB PO SCH (08:49)
[2019-05-25] MEDS: DOCUSATE SODIUM 100 MG CAP PO SCH (08:49)
[2019-05-25] MEDS: HumaLOG INSULIN (NovoLOG) PER UNIT SC SCH (08:49)
--- NOTE | 2019-05-25 09:21 | REP ---
MRI left clavicle: without and with intravenous contrast: History: Left clavicle mass. History of metastatic cancer. Comparison is made with CT images from May 23, 2019 and radiographs of the left clavicle from May 24, 2019. MR technique: Axial, coronal and sagittal imaging planes were utilized. T1 and T2-weighted scans were obtained with and without fat saturation. The intravenous contrast enhancement dose is 20 mL of ProHance. MRI findings: There is a destructive lesion in the medial head of the left clavicle with cortical disruption, pathologic fracture, and extraosseous soft tissue mass component. The lesion is low T1 and heterogeneously high T2 signal intensity with contrast enhancement compatible with a metastasis. There is osteoarthritis at the AC joint. Small quantity of glenohumeral joint fluid is visible. No other skeletal metastatic lesion is appreciated in the field of view. There are two or three normal-sized paratracheal mediastinal lymph nodes. No supraclavicular or cervical adenopathy is seen. Impression: There is a destructive lesion in the medial head of the left clavicle consistent with metastasis with pathologic fracture and soft tissue component. This correlates with the CT findings and the radiographic findings. Electronically Signed by Jose Cruz Woodruff MD 05/25/2019 11:17 A
--- NOTE | 2019-05-25 13:12 | DSES ---
DATE OF ADMISSION: 05/23/2019 DATE OF DISCHARGE: 05/25/2019 BRIEF HISTORY AND PHYSICAL: The patient is a 69-year-old patient with a history of metastatic renal cell carcinoma, status post left nephrectomy with metastasis to the lungs and brain, status post radiation to the brain, on oral chemotherapy with Inlyta per [facility], Dr. Inman. He presented with hemoptysis, a fairly copious amount of bright red blood in his sputum and a bubbling feeling in his lungs with some substernal chest discomfort but no significant shortness of breath, nausea, vomiting, diarrhea, or cough otherwise. PAST MEDICAL HISTORY: Is significant for the above cancer, chronic obstructive pulmonary disease (COPD), stage III coronary artery disease status post multiple stents. Most recent was October of 2018 for which he is on Plavix. PERTINENT LABORATORIES ON ADMISSION: White count 7.6, hemoglobin 12, platelets 275,000. Sodium 135, potassium 4.3, BUN 10, creatinine 1.1, glucose 160. PT 14.1, PTT 27. CT angiography showed no pulmonary embolism. He had a right pleural effusion which has significantly decreased. The known right lung masses are not significantly changed in size. These masses appear to be pleural-based. The right hilar and mediastinal adenopathy has not significantly changed, and the visualized upper abdominal contents are unremarkable. This is compared to 09/05/2018. HOSPITAL COURSE: The patient was admitted for hemoptysis. [place] most likely to be related to his lung lesions, particularly the pleural-based lesions that are present. His Plavix was held. His hemoptysis resolved. His hemoglobin remained stable, as did his respiratory status; and at this point, he will be discharged home off of Plavix; and followup of his metastatic lung lesions will be deferred to his oncologist; and the patient has been given a copy of the CT results, and he will obtain the disk for his oncology appointment, as well. Destructive lesion in the medial head of the left clavicle consistent with metastatic and pathological fracture and soft tissue component. This was a new development for this patient who states that his medial aspect of his left clavicle became swollen and tender within the last 24 hours of admission. I spoke with Dr. Inman' PA on the date of discharge and made him aware of this finding. He states that the patient had a bone scan a couple of weeks ago, that it did not reveal any uptake in the clavicle; and so, therefore, this is a concerning new metastatic lesion. The patient is aware of the results. Has been given a copy of the results and will also obtain the MRI images on CD to bring to his oncology appointment, they will be contacting him for followup. Today, he has been instructed to reinitiate his oral chemotherapy that he was on prior to admission. This has been on hold for the 2 days that he was in the hospital, but he will start that back up today per the recommendations of the oncologist. Coronary artery disease, status post stents. He had stents placed in October of 2018, and the Plavix has been held due to his hemoptysis. 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 Metastatic renal cell carcinoma to the lung, as above. He is on oral chemotherapy and will restart this upon discharge. Chronic kidney disease stage III. His renal function has been stable through the hospitalization and, in fact, was normal while he was here with a blood urea nitrogen (BUN) 11 and creatinine of 1. Diabetes. His blood sugars are fairly stable on his usual regimen. DISPOSITION: The patient is stable for discharge home. He again will be contacted by oncology for a followup appointment, and also he will be contacting his supervisor detasseling crew, as well. Followup with Dr. Jarvis early next week. Diet, consistent-carbohydrate. Activity as tolerated. MEDICATIONS: Amlodipine 10 mg daily, aspirin 81 mg daily, atorvastatin 20 mg daily, Inlyta 5 mg daily, vitamin D 5000 international units daily, Trulicity 1.5 mg weekly, glimepiride 8 mg daily, glutamine one dose daily, NovoLog FlexPen twice a day, Lantus 16 units twice a day, magnesium glycinate 400 mg daily, methylcobalamin 1 gram daily, metoprolol 50 mg twice a day, nitroglycerin sublingual as needed, nystatin topically as needed, omega-3 1000 mg daily, oxycodone 5 mg every 6 hours as needed for pain, pantoprazole 40 mg daily, tramadol 50 mg twice a day as needed for pain, CoQ10 200 mg daily. His Plavix is on hold. DISCHARGE DIAGNOSES: 1. Hemoptysis. 2. Destructive lesion in the medial head of the left clavicle consistent with metastasis and pathological fracture. 3. History of coronary artery disease, status post stents in October of 2018. 4. Chronic kidney disease stage III. 5. Metastatic renal cell carcinoma with metastatic disease to the lung and brain. 6. Diabetes mellitus, insulin requiring. 7. Hypertension.
== END 2019-05-25 11:33 | disposition home or self-care (01) | DRG 181 ==
LOC: M ED 11:15 → M ED INP 15:06 → ENRESERVDT 15:30 → ENRESERVTM 15:30 → M MSPAV 16:00
PROVIDERS: ADMIT Internal Medicine; ATTEND Family Medicine
DX: C78.01 Secondary malignant neoplasm of right lung (principal); R04.2 Hemoptysis; C79.31 Secondary malignant neoplasm of brain; C79.51 Secondary malignant neoplasm of bone; M84.512A Pathological fracture in neoplastic disease, left shoulder, initial encounter for fracture; I12.9 Hypertensive chronic kidney disease with stage 1 through stage 4 chronic kidney disease, or unspecified chronic kidney disease; J44.9 Chronic obstructive pulmonary disease, unspecified; I25.10 Atherosclerotic heart disease of native coronary artery without angina pectoris; Z95.5 Presence of coronary angioplasty implant and graft; E11.22 Type 2 diabetes mellitus with diabetic chronic kidney disease; N18.3 Chronic kidney disease, stage 3 (moderate); Z79.82 Long term (current) use of aspirin; Z79.4 Long term (current) use of insulin; Z79.899 Other long term (current) drug therapy; Z91.048 Other nonmedicinal substance allergy status; Z90.5 Acquired absence of kidney; Z87.891 Personal history of nicotine dependence; Z85.528 Personal history of other malignant neoplasm of kidney

== ENCOUNTER 2019-06-20 11:50 | Observation (INO) | payer MEDICARE, BC, OTHER ==
[~2019-06-20] VITALS: Ht 180.3 cm; Wt 98.6 kg
[~2019-06-20 11:50] MED LIST changes: +AXITINIB 5 MG PO SCH; +CLOP75TA2 PO; +FISH1000 PO; +INLY5TAB PO; +LOPR1TAB7 PO; +MAG100TA PO; +METO50TA7 PO; +OXYC-517 PO; +TRAM50TA2 PO; +VITA500079 PO; +[UNRECOGNIZED DRUG - CODE] PO
[2019-06-20] MEDS ORDERED: GLUCOSE 4 GM CHEW TABLET PO PRN (12:30)
[2019-06-20] MEDS ORDERED: DEXTROSE 50% 50 ML SYRINGE IV PRN (12:30)
[2019-06-20] MEDS ORDERED: oxyCODONE 5MG TAB PO PRN ×2 (12:30)
[2019-06-20] MEDS ORDERED: GLUCAGON FOR INJ 1 MG VIAL (J1610) SC PRN (12:30)
[2019-06-20] MEDS ORDERED: ACETAMINOPHEN 500 MG TAB PO PRN (12:30)
[2019-06-20 12:50] VITALS: BP 95/50
[2019-06-20 13:25] LABS: HEMATOCRIT 44.6 % (42.0-52.0); MEAN CORPUSCULAR HEMOGLOBIN 25.6 pg (27.0-33.0); MEAN CORPUSCULAR HGB CONC 31.4 g/dl (32.0-36.5); MEAN CORPUSCULAR VOLUME 81.5 fl (80.0-96.0); PLATELET COUNT, AUTOMATED 463 10^3/uL (150-450); RED BLOOD COUNT 5.47 10^6/uL (4.30-6.10); WHITE BLOOD COUNT 8.5 10^3/uL (4.0-10.0)
--- NOTE | 2019-06-20 13:38 | REP ---
Clinical: Abdominal pain with metastatic renal cell carcinoma. Technique: Axial noncontrast images from the lung bases to the pubic symphysis with coronal and sagittal re-formations. Findings: Liver, spleen, pancreas, gallbladder, bilateral adrenal glands and right kidney appear relatively normal for noncontrast evaluation. Evidence for prior left nephrectomy. The enteric system is without obstruction or acute inflammatory process. Sigmoid diverticula noted without acute diverticulitis. Pelvis demonstrates partially collapsed bladder and age appropriate prostate/seminal vesicles. No ascites. No free air. No obvious mass lesion. No significant adenopathy identified. Abdominal aorta without aneurysm. Skeletal structures demonstrate degenerative changes without obvious acute osseous process. Lung bases demonstrate few nodular metastatic foci including 4.2 cm lobulated metastatic lesion in the right lower lobe. Small right pleural reaction also identified. These findings are stable when compared to the chest CT dated 05/23/2019. Impression: 1. Metastatic disease at the visualized lung bases. 2. Left nephrectomy. 3. Sigmoid diverticula without acute diverticulitis. 4. No obvious abdominopelvic metastases or significant adenopathy. Electronically Signed by Israel Martin MD 06/20/2019 01:31 P
[2019-06-20 13:53] LABS: ALBUMIN 3.4 GM/DL (3.2-5.2); ALT/SGPT 29 U/L (12-78); AMYLASE 37 U/L (25-115); BILIRUBIN,TOTAL 0.7 MG/DL (0.2-1.0); BLOOD UREA NITROGEN 16 MG/DL (7-18); CARBON DIOXIDE LEVEL 22 MEQ/L (21-32); CHLORIDE LEVEL 100 MEQ/L (98-107); CREATININE FOR GFR 1.26 MG/DL (0.70-1.30); GLOMERULAR FILTRATION RATE > 60.0 (>49); GLUCOSE, FASTING 133 MG/DL (70-100); LIPASE 84 U/L (73-393); POTASSIUM SERUM 3.7 MEQ/L (3.5-5.1); SODIUM LEVEL 132 MEQ/L (136-145); TOTAL PROTEIN 9.1 GM/DL (6.4-8.2)
[2019-06-20 14:00] VITALS: BP 115/78
--- NOTE | 2019-06-20 14:04 | REP ---
Clinical: Cough. Technique: PA and lateral. Comparison: 05/23/2019. Findings: Large opacity in the posterior right upper lobe and right lower lobe similar to prior examination. Mediastinum and cardiac silhouette are stable. No obvious new acute process. No effusion. No pneumothorax. Skeletal structures appear intact. Impression: Right upper lobe and right lower lobe opacities similar to prior examination. Electronically Signed by Israel Martin MD 06/20/2019 01:55 P
--- NOTE | 2019-06-20 14:05 | REP ---
Clinical: Pain. History of metastatic disease. Technique: AP and lateral views of the left scapula. Findings: Scapula and associated visualized osseous structures appear intact and normal. No obvious osseous metastatic disease or fracture / dislocation appreciated. Impression: Normal examination. Electronically Signed by Israel Martin MD 06/20/2019 01:56 P
[2019-06-20] MEDS ORDERED: CLAR5TAB PO (14:32)
[2019-06-20] MEDS: PANTOPRAZOLE 40MG INJ (PROTONIX) (C9113) IV SCH (15:28)
[2019-06-20] MEDS: ENOXAPARIN 40 MG/0.4 ML SYRINGE (J1650) SC SCH (15:28)
[2019-06-20] MEDS: NS 1,000 ML IV SCH ×2 (15:28→22:08)
[2019-06-20] MEDS ORDERED: ZOLEDRONIC ACID 4 MG in D5W 100 ML IV ONE (16:00)
[2019-06-20] MEDS ORDERED: ZOLEDRONIC ACID 4 MG IV ONE ×2 (17:00)
--- NOTE | 2019-06-20 17:39 | REPVR ---
PROCEDURE INFORMATION: Exam: CT Cervical Spine Without Contrast Exam date and time: 06/20/2019 12:27 PM Age: 69 years old Clinical indication: Other: pain; Additional info: pain, renal cell CA with mets TECHNIQUE: Imaging protocol: Computed tomography images of the cervical spine without contrast. Axial, coronal and sagittal reformatted images were created and reviewed. Radiation optimization: All CT scans at this facility use at least one of these dose optimization techniques: automated exposure control; mA and/or kV adjustment per patient size (includes targeted exams where dose is matched to clinical indication); or iterative reconstruction. COMPARISON: No relevant prior studies available. FINDINGS: Vertebrae: Osteopenia. Normal cervical lordosis. Alignment anatomic. Levoscoliosis. No CT evidence of acute fracture, dislocation or subluxation. Vertebral body heights maintained. No lytic or blastic lesion. Discs/Spinal canal/Neural foramina: Mild multilevel degenerative changes, characterized by disc space narrowing, osteophytosis and uncovertebral and facet joint hypertrophy. Mild multilevel spinal canal and neural foraminal narrowing. Soft tissues: Grossly unremarkable. Lungs: Grossly unremarkable. IMPRESSION: Mild multilevel spondylosis and degenerative disc disease. No evidence of metastatic disease. Electronically signed by: Anoop Brooks On 06/20/2019 17:38:47 PM
[2019-06-20 18:00] VITALS: BP 135/81
[2019-06-20] MEDS: HumaLOG INSULIN (NovoLOG) PER UNIT SC SCH (18:13)
[2019-06-20 18:40] LABS: TOTAL PROTEIN 7.1 GM/DL (6.4-8.2)
[2019-06-20] MEDS ORDERED: ONDANSETRON 4MG/2ML VIAL (J2405) IV PRN (20:30)
[2019-06-20] MEDS ORDERED: traMADol 50 MG TAB PO PRN (20:30)
[2019-06-20] MEDS ORDERED: LEVEMIR (INSULIN DETEMIR) 1 UNITS/0.01ML SC SCH (21:00)
[2019-06-20] MEDS ORDERED: ATORVASTATIN 20 MG TAB PO SCH (21:00)
[2019-06-20] MEDS ORDERED: HumaLOG INSULIN (NovoLOG) PER UNIT SC SCH (21:00)
[2019-06-20 21:19] VITALS: BP 127/74
[2019-06-20] MEDS: METOPROLOL TART 50 MG TAB PO SCH (21:19)
[2019-06-20] MEDS: AXITINIB 5 MG PO SCH (21:19)
[2019-06-20 22:00] VITALS: BP 127/74
[2019-06-21 02:00] VITALS: BP 125/76
[2019-06-21] MEDS: NS 1,000 ML IV SCH (05:23)
[2019-06-21 05:59] LABS: HEMATOCRIT 33.5 % (42.0-52.0); MEAN CORPUSCULAR HEMOGLOBIN 25.7 pg (27.0-33.0); MEAN CORPUSCULAR HGB CONC 31.3 g/dl (32.0-36.5); MEAN CORPUSCULAR VOLUME 81.9 fl (80.0-96.0); RED BLOOD COUNT 4.09 10^6/uL (4.30-6.10); WHITE BLOOD COUNT 4.7 10^3/uL (4.0-10.0)
[2019-06-21 06:00] VITALS: BP 126/68
[2019-06-21 06:03] LABS: HEMOGLOBIN 10.5 g/dl (13.5-17.5)
[2019-06-21 06:04] LABS: PLATELET COUNT, AUTOMATED 303 10^3/uL (150-450)
[2019-06-21 06:29] LABS: ALBUMIN 2.6 GM/DL (3.2-5.2); ALT/SGPT 23 U/L (12-78); BILIRUBIN,TOTAL 0.4 MG/DL (0.2-1.0); BLOOD UREA NITROGEN 12 MG/DL (7-18); CALCIUM LEVEL 8.8 MG/DL (8.8-10.2); CARBON DIOXIDE LEVEL 24 MEQ/L (21-32); CHLORIDE LEVEL 108 MEQ/L (98-107); CREATININE FOR GFR 1.12 MG/DL (0.70-1.30); GLOMERULAR FILTRATION RATE > 60.0 (>49); GLUCOSE, FASTING 102 MG/DL (70-100); POTASSIUM SERUM 3.8 MEQ/L (3.5-5.1); SODIUM LEVEL 139 MEQ/L (136-145); TOTAL PROTEIN 6.7 GM/DL (6.4-8.2)
--- NOTE | 2019-06-21 08:47 | IPNPDOC ---
Subjective Date Seen The patient was seen on 06/21/19. Subjective Chief Complaint/HPI No abdominial pain. Has appetite. No significant pain. Adequate pain control with Tramadol alone. Constitutional: Denies: Chills Eyes: Denies: Pain, Vision change ENT: Denies: Head Aches Pulmonary: Denies: Dyspnea Cardiovascular: Denies: Chest Pain, Palpitations Gastrointestinal: Denies: Nausea, Abdominal Pain Hematologic: Denies: Bruising Musculoskeletal: Denies: Neck Pain Psych: Reports: Mood Normal; Denies: Anxiety Objective Physical Examination General Exam: Positive: Alert, Cooperative, No Acute Distress Eye Exam: Positive: EOMI; Negative: Sclera icteric Neck Exam: Positive: Supple; Negative: thyromegaly Chest Exam: Positive: Clear to auscultation, Normal air movement; Negative: Rales, Rhonchi, Wheezing Heart Exam: Positive: Rate Normal, Regular Rhythm; Negative: Murmurs Abdomen Exam: Positive: Normal bowel sounds; Negative: Tenderness Extremity Exam: Negative: Clubbing, Edema Skin Exam: Positive: Nl turgor and temperature Psych Exam: Positive: Mental status NL Assessment /Plan Problems (1) Hypercalcemia Status: Resolved Problem Text: Likely due to metastatic renal CA. Multiple bone mets, foot, left clavicle. These have been irradiated. He was experiencing nausea, inanition, malaise and abdominal pain prompting admission. With Zometa, calcitonin, hydration his calcium is 8.8 this am and his symptoms have all resolved. Will advance diet and if doing well by noon, consider discharge. Hemoglobin is down since admission, attributed to hydration/dilution. There is no evidence for active blood loss. (2) Metastatic renal cell carcinoma to bone Status: Chronic Response to Treatment: Stable Problem Text: He has completed radiation therapy recently to lesions in right foot and left clavicle. (3) Diabetes mellitus Status: Chronic Response to Treatment: Stable Problem Text: Due to abdominal discomfort and nausea he has been unable to eat, so was experiencing episodes of hypoglycemia on his old insulin dose. The dose has been reduced and when discharged will continue reduced dose until he demonstrates a need to increase. (4) CAD (coronary artery disease) Status: Chronic Response to Treatment: Stable Problem Text: asymptomatic at this time. Plan/VTE VTE Prophylaxis Ordered?: Yes Plan Anticipated Discharge: Home VS, I&O, 24H, Fishbone Vital Signs/I&O Vital Signs Date Time Temp Pulse Resp B/P (MAP) Pulse Ox O2 Delivery O2 Flow Rate FiO2 06/21/19 06:00 97.6 66 17 126/68 (87) 99 Room Air I&O- Last 24 Hours up to 6 AM 06/21/19 06:00 Intake Total 2177.5 ml Output Total 975 ml Balance 1202.5 ml Laboratory Data 24H LABS Laboratory Tests 2 06/20/19 12:57: Nucleated Red Blood Cells % (auto) 0.0, Anion Gap 10, Glomerular Filtration Rate > 60.0, Calcium Level 11.0H, Total Bilirubin 0.7, Aspartate Amino Transf (AST/SGOT) 24, Alanine Aminotransferase (ALT/SGPT) 29, Alkaline Phosphatase 121H, Total Protein 9.1H, Albumin 3.4, Albumin/Globulin Ratio 0.60L, Amylase Level 37, Lipase 84 06/20/19 13:55: Bedside Glucose (Misc Panel) 114 06/20/19 16:57: Bedside Glucose (Misc Panel) 144H 06/20/19 18:05: Total Protein (PEP) 7.1 06/20/19 21:09: Bedside Glucose (Misc Panel) 114 06/21/19 05:14: Nucleated Red Blood Cells % (auto) 0.0, Anion Gap 7L, Glomerular Filtration Rate > 60.0, Calcium Level 8.8#, Total Bilirubin 0.4, Aspartate Amino Transf (AST/SGOT) 12, Alanine Aminotransferase (ALT/SGPT) 23, Alkaline Phosphatase 87, Total Protein 6.7#, Albumin 2.6#L, Albumin/Globulin Ratio 0.63L CBC/BMP Laboratory Tests 06/20/19 12:57 06/21/19 05:14 Sesar Rice MD Jun 21, 2019 08:47
[2019-06-21] MEDS: PANTOPRAZOLE 40MG INJ (PROTONIX) (C9113) IV SCH (08:58)
[2019-06-21] MEDS: METOPROLOL TART 50 MG TAB PO SCH (08:58)
[2019-06-21] MEDS: AXITINIB 5 MG PO SCH (08:59)
[2019-06-21] MEDS: ENOXAPARIN 40 MG/0.4 ML SYRINGE (J1650) SC SCH (08:59)
[2019-06-21] MEDS: HumaLOG INSULIN (NovoLOG) PER UNIT SC SCH ×2 (08:59→12:00)
[2019-06-21] MEDS ORDERED: amLODIPine 5 MG TAB PO SCH (09:00)
[2019-06-21 10:00] VITALS: BP 128/66
[2019-06-21] MEDS ORDERED: CALC20SPR (13:36)
[2019-06-21] MEDS ORDERED: CALCITONIN NASAL SPRAY 3.7 ML BTL SCH (17:00)
--- NOTE | 2019-06-21 19:16 | DSES ---
DATE OF ADMISSION: 06/20/2019 DATE OF DISCHARGE: 06/21/2019 THIS IS AN OBSERVATION DISCHARGE. Mr. Jamison was admitted from the clinic yesterday with complaints of abdominal pain, several days of malaise, episodes of hypoglycemia. He was found recently to have elevated calcium levels. He received hydration overnight which, along with Zometa 4 mg and calcitonin, this morning his calcium was down to 8.8 and his abdominal discomfort had completely resolved. He feels fine, took breakfast well and at well at lunch, and therefore we will discharge and changes status to an observation admission. His hemoglobin did drop overnight from 14-10.5, but there has been no evidence of GI bleeding, no black stool, no abdominal distress. His abdomen exam was unremarkable today. No tenderness, guarding or rebound and he has no nausea and again, ate well at lunchtime. Blood sugars have been between 114 and 62. Today at lunch it was 62. This was on a reduced dose of Levemir insulin, but he did receive sliding scale coverage during the day. Fasting glucose today was 102. At this time, his status is satisfactory as he is completely asymptomatic. He will be discharged on 10 units of Lantus. This is a daily dose as compared to his 16 twice a day dose and he is advised to contact his primary care provider (PCP) for dose adjustment if he finds his subsequent glucose is high. Of course, he should also call if he sees persistently low glucose level. DISCHARGE DIAGNOSES: 1. History of clear cell carcinoma of the kidneys with metastasis to multiple bone medications and lungs. 2. Hypercalcemia secondary to bony metastasis from renal carcinoma. 3. Diabetes mellitus type 2. 4. History of coronary artery disease. 5. Anemia. 6. Mild volume depletion at admission. 7. Hyponatremia, which resolved overnight, from 132 to 139 after intravenous (IV) fluid replacement. Pending at the time of discharge is serum protein electrophoresis. This was ordered because of a low albumin and globulin ratio suggesting the presence of elevated globulins and possible alternate etiology for the bone lesions. Note that his glucose was 62 before lunch today. Imaging accomplished during his hospital stay included a chest x-ray, which showed no change in right upper and lower lobe opacities compared to previous exam. CT abdomen and pelvis showed no abnormalities other than evidence of left nephrectomy, sigmoid diverticulosis and unchanged nodular metastases in the lung bases that were previously identified on CT. Cervical spine CT scan was done which showed no evidence for metastatic disease, but did show multilevel spondylosis and degenerative disc disease. At the time of presentation, he was complaining of neck discomfort radiating into shoulder blade, but this symptom also has resolved overnight. Scapular x-ray done because of the pain complaint also was normal with no bony metastasis identified. Activity will be as tolerated. Usual, controlled carbohydrate diet. Restrict sodium to 2 grams. Followup with his primary care provider within a week. Call if his glucose proves troublesome, either too high or too low, based on his historically instructed parameters.
[2019-06-22 09:03] LABS: ALBUMIN % 46.2 % (55.8-66.1); ALPHA-1-GLOBULIN % 8.8 % (2.9-4.9); ALPHA-2-GLOBULINS % 19.6 % (7.1-11.8); BETA-1-GLOBULINS % 7.1 % (4.7-7.2); BETA-2-GLOBULINS % 7.8 % (3.2-6.5); GAMMA GLOBULIN % 10.5 % (11.1-18.8)
[2019-06-22 09:04] LABS: ALBUMIN 3.28 GM/DL (3.29-5.55); ALPHA-1-GLOBULINS 0.62 GM/DL (0.17-0.41); ALPHA-2-GLOBULINS 1.39 GM/DL (0.42-0.99); BETA-2-GLOBULINS 0.55 GM/DL (0.19-0.55); GAMMA GLOBULINS 0.75 GM/DL (0.65-1.58)
== END 2019-06-21 14:34 | disposition home or self-care (01) ==
LOC: INTOOBSV 12:02 → M MSPAV 12:02
PROVIDERS: ADMIT Family Medicine; ATTEND Family Medicine
DX: C64.2 Malignant neoplasm of left kidney, except renal pelvis (principal); C79.51 Secondary malignant neoplasm of bone; C78.00 Secondary malignant neoplasm of unspecified lung; E83.52 Hypercalcemia; E11.3293 Type 2 diabetes mellitus with mild nonproliferative diabetic retinopathy without macular edema, bilateral; E11.649 Type 2 diabetes mellitus with hypoglycemia without coma; I25.10 Atherosclerotic heart disease of native coronary artery without angina pectoris; D64.9 Anemia, unspecified; E86.9 Volume depletion, unspecified; E87.1 Hypo-osmolality and hyponatremia; I11.9 Hypertensive heart disease without heart failure; Z87.891 Personal history of nicotine dependence; Z79.899 Other long term (current) drug therapy; M25.511 Pain in right shoulder
CPT/HCPCS: 36415; 71046; 72125; 73010; 74176; 80053; 82150; 83690; 84165; 85027; 96361; 96365; 96372; 96375; 96376; C9113; G0378; G0463; J1650; J2405; J3489

== ENCOUNTER → 2019-06-26 | Outpatient (REF) | payer MEDICARE, OTHER ==
[~2019-06-26] MED LIST changes: -AXITINIB 5 MG PO SCH; +CALC20SPR
[2019-06-26 12:49] LABS: BILIRUBIN,TOTAL 0.4 MG/DL (0.2-1.0); CALCIUM LEVEL 10.2 MG/DL (8.8-10.2); CREATININE FOR GFR 1.58 MG/DL (0.70-1.30); GLOMERULAR FILTRATION RATE 46.8 (>49); POTASSIUM SERUM 4.1 MEQ/L (3.5-5.1); TOTAL PROTEIN 6.9 GM/DL (6.4-8.2)
[2019-06-26 13:10] LABS: IONIZED CALCIUM 4.5 MG/DL (4.5-5.3)
== END ==
LOC: M SFHCADAM 09:47
PROVIDERS: ATTEND Family Medicine
DX: E11.3293 Type 2 diabetes mellitus with mild nonproliferative diabetic retinopathy without macular edema, bilateral (principal); Z79.4 Long term (current) use of insulin; E83.52 Hypercalcemia
CPT/HCPCS: 80053; 82330; 99496; G0463

== ENCOUNTER 2019-07-18 11:31 | Emergency (ER) | payer MEDICARE, BC, OTHER ==
[~2019-07-18] VITALS: Ht 180.3 cm; Wt 95.8 kg
[2019-07-18] MEDS ORDERED: LEVO750T13 (11:40)
[2019-07-18] MEDS ORDERED: NS 1,000 ML IV ONE (12:15)
[2019-07-18] MEDS ORDERED: ISOVUE-370 76% 100ML VIAL (Q9967) As Ordered ONE (13:02)
[2019-07-18 13:06] LABS: BASO % 0.4 % (0.0-1.0); EOS # 0.1 10^3/uL (0.0-0.5); EOS % 0.9 % (0.0-3.0); HEMATOCRIT 33.7 % (42.0-52.0); HEMOGLOBIN 10.3 g/dl (13.5-17.5); LYMPH # 0.7 10^3/uL (1.5-5.0); LYMPH % 11.9 % (24.0-44.0); MEAN CORPUSCULAR HEMOGLOBIN 24.3 pg (27.0-33.0); MEAN CORPUSCULAR HGB CONC 30.6 g/dl (32.0-36.5); MEAN CORPUSCULAR VOLUME 79.7 fl (80.0-96.0); MONO # 0.4 10^3/uL (0.0-0.8); MONO % 7.4 % (0.0-5.0); NEUTROPHILS # 4.4 10^3/uL (1.5-8.5); PLATELET COUNT, AUTOMATED 384 10^3/uL (150-450); RED BLOOD COUNT 4.23 10^6/uL (4.30-6.10); WHITE BLOOD COUNT 5.5 10^3/uL (4.0-10.0)
[2019-07-18 13:29] LABS: ALBUMIN 2.5 GM/DL (3.2-5.2); ALT/SGPT 29 U/L (12-78); AMYLASE 30 U/L (25-115); BILIRUBIN,DIRECT 0.1 MG/DL (0.0-0.2); BILIRUBIN,TOTAL 0.3 MG/DL (0.2-1.0); LIPASE 83 U/L (73-393); TOTAL PROTEIN 6.4 GM/DL (6.4-8.2)
--- NOTE | 2019-07-18 13:51 | REP ---
CT ABDOMEN AND PELVIS WITH IV WITHOUT ORAL CONTRAST: HISTORY: Left upper quadrant pain. Some jaundice. Decreased appetite and vomiting. Comparison CT study June 20, 2019. There is apparently also history of renal cell carcinoma. Comparison study is also reviewed from September 05, 2018. CT CONTRAST DOSE: 100 mL of intravenous Isovue 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 There is a confluent nodular heterogeneously enhancing mass in the right lower lobe of the lung measuring 5.5 x 4.2 x 2.6 cm in diameter. This is larger than on the June 20, 2019 study. There is some ground-glass opacity along the superior margin of this. There is linear plate-like atelectasis or fibrosis in both bases. No pleural effusion is seen. No adrenal masses observed on either side. No hepatic mass lesion is seen. There is mild diffuse fatty infiltration of the liver. No splenic lesion is seen. No abnormality is noted in the pancreas. The gallbladder is unremarkable. The patient is status post left nephrectomy. The right kidney is intact and unremarkable. No retroperitoneal mass or adenopathy is observed. Normal appendix is seen in the right lower quadrant. No pelvic mass or adenopathy is observed. There are some dystrophic calcifications in the prostate. Urinary bladder is unremarkable. There is no obstructive gastrointestinal lesion. No mass lesion is observed. IMPRESSION: Progressive enlargement right lower lobe lung mass becoming confluent, 5.5 cm in greatest diameter. No pleural effusion. Status post left nephrectomy. No acute abnormality in the abdomen or pelvis. Electronically Signed by Jose Cruz Woodruff MD 07/18/2019 04:29 P
[2019-07-18] MEDS ORDERED: REGL10TA6 PO (14:24)
[2019-07-18 14:45] VITALS: BP 120/68
[2019-07-18 15:01] LABS: MONO REFLEX EBV COMP NEGATIVE (NEGATIVE)
--- NOTE | 2019-07-18 20:15 | ECGEPIP ---
[facility] - ED Test Date: 2019-07-18 Pat Name: ANNY PIKE Department: Room: - Gender: Male [employer] Tester: Ave SALINAS : 1950 Requested By: JENNIE Carter PA-C Order Number: [id number] Reading MD: Sania Preston Measurements Intervals [place] Rate: 75 P: 64 [place]: 183 QRS: -20 QRSD: 94 T: 14 QT: 382 QTc: 427 Interpretive Statements SINUS RHYTHM PRWP SIMILAR 05/23/19 Electronically Signed on 07-18-2019 20:15:08 EDT by Sania Preston
[2019-07-21 00:06] LABS: EBV AB TO NUCLEAR ANTIGEN 37.3 U/mL (0.0-17.9); EBV VIRAL CAPSID AG IgM <36.0 U/mL (0.0-35.9)
== END 2019-07-18 14:47 | disposition home or self-care (01) ==
LOC: M ED 11:31
DX: C79.51 Secondary malignant neoplasm of bone (principal); C78.00 Secondary malignant neoplasm of unspecified lung; Z85.528 Personal history of other malignant neoplasm of kidney; E11.9 Type 2 diabetes mellitus without complications; I10 Essential (primary) hypertension; E78.5 Hyperlipidemia, unspecified; K21.9 Gastro-esophageal reflux disease without esophagitis; K27.9 Peptic ulcer, site unspecified, unspecified as acute or chronic, without hemorrhage or perforation; Z92.3 Personal history of irradiation; Z79.899 Other long term (current) drug therapy; Z79.82 Long term (current) use of aspirin; Z79.4 Long term (current) use of insulin; Z91.048 Other nonmedicinal substance allergy status; Z87.891 Personal history of nicotine dependence
CPT/HCPCS: 36415; 74177; 80047; 80076; 81001; 82150; 83605; 83690; 85025; 86308; 86664; 86665; 93005; 96360; 99284; Q9967

== ENCOUNTER → 2019-08-23 | Outpatient (REF) | payer MEDICARE, OTHER ==
[~2019-08-23] MED LIST changes: +LEVO750T13; +REGL10TA6 PO
[2019-08-23 12:59] LABS: BASO % 0.3 % (0.0-1.0); EOS # 0.1 10^3/uL (0.0-0.5); EOS % 0.9 % (0.0-3.0); HEMATOCRIT 44.1 % (42.0-52.0); HEMOGLOBIN 13.9 g/dl (13.5-17.5); LYMPH # 1.2 10^3/uL (1.5-5.0); LYMPH % 10.1 % (24.0-44.0); MEAN CORPUSCULAR HEMOGLOBIN 24.8 pg (27.0-33.0); MEAN CORPUSCULAR HGB CONC 31.5 g/dl (32.0-36.5); MEAN CORPUSCULAR VOLUME 78.8 fl (80.0-96.0); MONO # 0.7 10^3/uL (0.0-0.8); MONO % 5.6 % (0.0-5.0); NEUTROPHILS # 9.7 10^3/uL (1.5-8.5); NEUTROPHILS % 82.7 % (36.0-66.0); PLATELET COUNT, AUTOMATED 299 10^3/uL (150-450); WHITE BLOOD COUNT 11.7 10^3/uL (4.0-10.0)
[2019-08-23 13:05] LABS: ALBUMIN 2.8 GM/DL (3.2-5.2); ALT/SGPT 48 U/L (12-78); BILIRUBIN,TOTAL 0.7 MG/DL (0.2-1.0); BLOOD UREA NITROGEN 13 MG/DL (7-18); CALCIUM LEVEL 9.9 MG/DL (8.8-10.2); CARBON DIOXIDE LEVEL 26 MEQ/L (21-32); CHLORIDE LEVEL 108 MEQ/L (98-107); CREATININE FOR GFR 1.18 MG/DL (0.70-1.30); GLOMERULAR FILTRATION RATE > 60.0 (>49); GLUCOSE, FASTING 137 MG/DL (70-100); POTASSIUM SERUM 4.6 MEQ/L (3.5-5.1); SODIUM LEVEL 139 MEQ/L (136-145); TOTAL PROTEIN 6.8 GM/DL (6.4-8.2)
== END ==
LOC: M LABDRWAD 12:33
PROVIDERS: ATTEND Physician Assistant Medical
DX: C64.9 Malignant neoplasm of unspecified kidney, except renal pelvis (principal)

== ENCOUNTER → 2019-08-23 | Outpatient (REF) | payer MEDICARE, OTHER ==
[2019-08-23 13:14] LABS: BLOOD UREA NITROGEN 14 MG/DL (7-18); CREATININE FOR GFR 1.15 MG/DL (0.70-1.30); GLOMERULAR FILTRATION RATE > 60.0 (>49)
== END ==
LOC: M LABDRWAD 12:35
PROVIDERS: ATTEND Neurological Surgery
DX: Z13.89 Encounter for screening for other disorder (principal); C79.31 Secondary malignant neoplasm of brain

== ENCOUNTER → 2019-09-14 | Outpatient (REF) | payer MEDICARE, OTHER ==
[~2019-09-14] MED LIST changes: +MUCI60TA7 PO; +ONDA4TAB6 PO
[2019-09-14 13:39] LABS: BASO % 0.3 % (0.0-1.0); EOS % 0.4 % (0.0-3.0); HEMATOCRIT 45.2 % (42.0-52.0); LYMPH # 1.1 10^3/uL (1.5-5.0); LYMPH % 10.4 % (24.0-44.0); MEAN CORPUSCULAR HEMOGLOBIN 24.7 pg (27.0-33.0); MEAN CORPUSCULAR VOLUME 79.9 fl (80.0-96.0); MONO # 0.7 10^3/uL (0.0-0.8); MONO % 6.2 % (0.0-5.0); NEUTROPHILS # 8.5 10^3/uL (1.5-8.5); NEUTROPHILS % 81.6 % (36.0-66.0); PLATELET COUNT, AUTOMATED 345 10^3/uL (150-450); RED BLOOD COUNT 5.66 10^6/uL (4.30-6.10); WHITE BLOOD COUNT 10.4 10^3/uL (4.0-10.0)
[2019-09-14 13:40] LABS: ALBUMIN 3.2 GM/DL (3.2-5.2); ALT/SGPT 40 U/L (12-78); BILIRUBIN,TOTAL 0.4 MG/DL (0.2-1.0); BLOOD UREA NITROGEN 17 MG/DL (7-18); CALCIUM LEVEL 11.4 MG/DL (8.8-10.2); CARBON DIOXIDE LEVEL 26 MEQ/L (21-32); CHLORIDE LEVEL 105 MEQ/L (98-107); CREATININE FOR GFR 1.09 MG/DL (0.70-1.30); GLOMERULAR FILTRATION RATE > 60.0 (>49); GLUCOSE, FASTING 238 MG/DL (70-100); POTASSIUM SERUM 4.9 MEQ/L (3.5-5.1); SODIUM LEVEL 138 MEQ/L (136-145); TOTAL PROTEIN 7.1 GM/DL (6.4-8.2)
== END ==
LOC: M LABDRWAD 12:17
PROVIDERS: ATTEND Physician Assistant Medical
DX: C64.9 Malignant neoplasm of unspecified kidney, except renal pelvis (principal)

== ENCOUNTER 2019-09-21 13:23 | Emergency (ER) | payer MEDICARE, BC, OTHER ==
[~2019-09-21] VITALS: Ht 180.3 cm; Wt 88.6 kg
[~2019-09-21 13:23] MED LIST changes: -MUCI60TA7 PO; -ONDA4TAB6 PO
[2019-09-21] MEDS ORDERED: ONDA4TAB6 PO (14:17)
[2019-09-21] MEDS ORDERED: MUCI60TA7 PO (14:17)
[2019-09-21] MEDS ORDERED: CLOP75TA2 PO (14:17)
[2019-09-21 14:30] VITALS: BP 135/78
== END 2019-09-21 14:48 | disposition home or self-care (01) ==
LOC: M ED 13:23
DX: R04.2 Hemoptysis (principal); R05 Cough; C64.9 Malignant neoplasm of unspecified kidney, except renal pelvis; C78.00 Secondary malignant neoplasm of unspecified lung; C79.31 Secondary malignant neoplasm of brain

== ENCOUNTER 2019-10-01 14:13 | Inpatient (IN) | payer MEDICARE, BC, OTHER ==
[~2019-10-01] VITALS: Ht 180.3 cm; Wt 91.4 kg
[~2019-10-01 14:13] MED LIST changes: +MUCI60TA7 PO; +ONDA4TAB6 PO
--- NOTE | 2019-10-01 15:26 | REP ---
CHEST, TWO VIEWS: Two views of the chest are performed and compared to prior study of 06/20/2019. There are two large right upper lobe opacities and one right lower lobe opacity, which have mildly increased when compared to the prior study. Left lung is clear with no abnormality. The heart is normal in size. The remainder of the study is unchanged. IMPRESSION: Mildly increased size of right upper and lower lobe lung opacities. Electronically Signed by Kendrick Kelsey MD 10/01/2019 03:34 P
[2019-10-01 15:53] LABS: BASO % 0.3 % (0.0-1.0); EOS % 0.4 % (0.0-3.0); HEMATOCRIT 41.1 % (42.0-52.0); HEMOGLOBIN 12.5 g/dl (13.5-17.5); LYMPH # 0.7 10^3/uL (1.5-5.0); MEAN CORPUSCULAR HEMOGLOBIN 23.9 pg (27.0-33.0); MEAN CORPUSCULAR HGB CONC 30.4 g/dl (32.0-36.5); MEAN CORPUSCULAR VOLUME 78.4 fl (80.0-96.0); MONO # 0.5 10^3/uL (0.0-0.8); MONO % 6.3 % (0.0-5.0); NEUTROPHILS # 6.2 10^3/uL (1.5-8.5); NEUTROPHILS % 83.7 % (36.0-66.0); PLATELET COUNT, AUTOMATED 310 10^3/uL (150-450); RED BLOOD COUNT 5.24 10^6/uL (4.30-6.10); WHITE BLOOD COUNT 7.5 10^3/uL (4.0-10.0)
[2019-10-01 16:15] LABS: ALBUMIN 2.9 GM/DL (3.2-5.2); ALT/SGPT 24 U/L (12-78); BILIRUBIN,DIRECT 0.2 MG/DL (0.0-0.2); BILIRUBIN,TOTAL 0.8 MG/DL (0.2-1.0); BLOOD UREA NITROGEN 10 MG/DL (7-18); CALCIUM LEVEL 10.2 MG/DL (8.8-10.2); CARBON DIOXIDE LEVEL 25 MEQ/L (21-32); CHLORIDE LEVEL 102 MEQ/L (98-107); CREATININE FOR GFR 0.91 MG/DL (0.70-1.30); GLOMERULAR FILTRATION RATE > 60.0 (>49); GLUCOSE, FASTING 190 MG/DL (70-100); INR 1.09; PARTIAL THROMBOPLASTIN TIME 26.3 SECONDS (25.0-38.4); POTASSIUM SERUM 4.3 MEQ/L (3.5-5.1); PROTHROMBIN TIME 13.8 SECONDS (11.8-14.0); SODIUM LEVEL 133 MEQ/L (136-145); TOTAL PROTEIN 6.7 GM/DL (6.4-8.2)
[2019-10-01 16:18] LABS: D-DIMER QUANT 566.44 ng/ml (<500)
[2019-10-01] MEDS ORDERED: ISOVUE-370 76% 100ML VIAL As Ordered ONE (16:53)
--- NOTE | 2019-10-01 17:25 | REPVR ---
PROCEDURE INFORMATION: Exam: CT Angiography Chest With Contrast Exam date and time: 10/01/2019 4:49 PM Age: 69 years old Clinical indication: Other: Hemoptysis; Additional info: Chest pain/hemoptysis TECHNIQUE: Imaging protocol: Computed tomographic angiography of the chest with intravenous contrast. 3D rendering: MIP and/or 3D reconstructed images were created by the technologist. Radiation optimization: All CT scans at this facility use at least one of these dose optimization techniques: automated exposure control; mA and/or kV adjustment per patient size (includes targeted exams where dose is matched to clinical indication); or iterative reconstruction. Contrast material: ISOVUE 370; Contrast volume: 75 ml; Contrast route: IV; COMPARISON: CT ANGIO CHEST 05/23/2019 1:02 PM FINDINGS: Pulmonary arteries: No filling defects within the main, lobar, segmental, and subsegmental pulmonary arterial branches. Aorta: Mild atherosclerotic calcifications of the aorta. No evidence of dissection or aneurysm. Lungs: Multiple large masses throughout the right upper and lower lobes, largest singular mass in the right upper lobe measuring 7.5 cm. Prominent scattered areas of consolidation and ground-glass opacities throughout the right lung. Pleural space: Small right pleural effusion. Heart: Mild to moderate calcifications of the coronary arteries. Lymph nodes: Several scattered prominent mediastinal lymph nodes, example subcarinal node measuring 1.3 cm short axis. Bones/joints: Multilevel degenerative changes of the visualized spine. No acute fracture. Soft tissues: Unremarkable. IMPRESSION: 1. Multiple large masses throughout the right upper and lower lobes, largest singular mass in the right upper lobe measuring 7.5 cm, highly concerning for primary lung neoplasms. Several scattered prominent mediastinal lymph nodes is concerning for local spread of disease. Recommend thoracic surgery consultation. 2. Prominent scattered areas of consolidation and ground-glass opacities throughout the right lung. Superimposed multifocal pneumonia cannot be excluded. 3. Small right pleural effusion. 4. No CTA evidence of pulmonary embolism. 5. Other chronic findings, as above. Electronically signed by: Andrzej Shaikh On 10/01/2019 17:24:49 PM
[2019-10-01] MEDS ORDERED: DOXYCYCLINE HYCLATE 100 MG in D5W MINI-BAG PLUS 100 ML IV ONE (17:45)
[2019-10-01] MEDS ORDERED: cefTRIAXone SOD 1 GM in D5W MINI-BAG PLUS 50 ML IV ONE (17:45)
[2019-10-01] MEDS ORDERED: ACETAMINOPHEN 325 MG TAB PO ONE (17:45)
[2019-10-01] MEDS ORDERED: NS 1,000 ML IV ONE (17:45)
[2019-10-01] MEDS ORDERED: GLUCOSE 4GM CHEW TABLET PO PRN (18:30)
[2019-10-01] MEDS ORDERED: ACETAMINOPHEN TAB 650MG DOSE (2X325MG) PO PRN (18:30)
[2019-10-01] MEDS ORDERED: DEXTROSE 50% 50 ML SYRINGE IV PRN (18:30)
[2019-10-01] MEDS ORDERED: VITAD1000T PO (18:30)
[2019-10-01] MEDS ORDERED: GLUCAGON INJ 1MG VIAL SC PRN (18:30)
[2019-10-01] MEDS ORDERED: B-12100010 PO (18:30)
--- NOTE | 2019-10-01 18:52 | HPEPDOC ---
General Date of Admission October 01, 2019 at 18:23 Date of Service: October 01, 2019 Chief Complaint The patient is a 69-year-old male admitted with a reason for visit of Cad,Ckd Stage Iii, Pneumonia, Metastasis To Lung. Source: Patient, Old records Exam Limitations: No limitations Timing/Duration: Day(s) Severity: Moderate Associated Symptoms: Cough, Shortness of breath History of Present Illness Patient is 69 years old male with past medical history of hypertension, COPD, stage III, coronary artery disease status post multiple stents, diabetes mellitus type 2, metastatic renal carcinoma status post left nephrectomy, history of metastases to lungs and brain, status post, radiation to brain presented with chief complaints of hemoptysis. Of note patient was diagnosed with renal cell carcinoma in 2010 and since that time he's been on the multiple courses of chemotherapy and radiation. He recently finished the course of chemotherapy. Patient stated that for past few days he has been having increased shortness of breath with cough and hemoptysis. Also patient stated that he has been having severe right posterior ribs chest pain at the level of T6-T10 In emergency room patient was found to have hemoglobin of 12.5, no profound electrolytes abnormalities, creatinine 0.9. CTA was done and showed Multiple large masses throughout the right upper and lower lobes, largest singular mass in the right upper lobe measuring 7.5 cm, highly concerning for primary lung neoplasms. Small right pleural effusion. Prominent scattered areas of consolidation and ground-glass opacities throughout the right lung. Superimposed multifocal pneumonia cannot be excluded. Patient denied fever, chills, nausea, vomiting, diarrhea or dysuria Home Medications Scheduled Amlodipine Besylate (Amlodipine Besylate) 10 Mg Tab, 10 MG PO DAILY, (Reported) Aspirin (Aspir 81) 81 Mg Tab, 81 MG PO DAILY, (Reported) Atorvastatin Calcium (Atorvastatin Calcium) 20 Mg Tab, 20 MG PO QHS, (Reported) Calcitonin Blairs (Calcitonin-Blairs) 3.7 Ml [place].pump, 1 SPRAYS NA DAILY one spray to one nostril daily; alternate sides every other day Cholecalciferol (Vitamin D3) (Vitamin D3) 1,000 Unit Tablet, 5,000 UNITS PO DAILY, (Reported) Cyanocobalamin (Vitamin B-12) (Vitamin B-12) 1,000 Mcg Capsule, 1,000 MCG PO DAILY, (Reported) Glutamine (l-Glutamine) 1 Pow Pow, 1 DOSE PO DAILY, (Reported) Guaifenesin/Pseudoephedrne HCl (Mucinex D ER 600-60 mg Tablet) 1 Each Tab.er.12h, 1 TAB PO BID, (Reported) Insulin Aspart (Novolog Flexpen) 100 Unit/Ml Inj, 1 DOSE SC BID, (Reported) PER SLIDING SCALE AT LUNCH AND DINNER Insulin Glargine,Hum.rec.anlog (Lantus Solostar) 100 Unit/Ml Inj, 20 UNITS SC DAILY, (Reported) Magnesium Glycinate (Mag Glycinate) 100 Mg Tablet, 400 MG PO DAILY, (Reported) Metoprolol Tartrate (Metoprolol Tartrate) 50 Mg Tablet, 50 MG PO BID, (Reported) [place]-3 Fatty Acids/Fish Oil (Fish Oil 1,000 mg Capsule) 1 Each Capsule, 1,000 MG PO DAILY, (Reported) Pantoprazole Sodium (Pantoprazole Sodium) 40 Mg Tab, 40 MG PO DAILY, (Reported) Ubidecarenone (Co Q-10) 200 Mg Cap, 200 MG PO DAILY, (Reported) Scheduled PRN Nitroglycerin (Nitroglycerin) 0.4 Mg Sub, 0.4 MG SL Q5MP PRN for CHEST PAIN, (Reported) Nystatin (Nystatin Powder) 100,000 Unit/Gm Pow, 1 DOSE TOP DAILY PRN for RASH/ITCHING, (Reported) LEGS/GROIN AREA Ondansetron (Ondansetron Odt) 4 Mg Tab.rapdis, 4 MG PO Q8HP PRN for NAUSEA, (Reported) Allergies Coded Allergies: TAPE (Verified Allergy, Unknown, WHITE ADHESIVE TAPE, 05/23/19) Past Medical History Medical History RENAL CELL CARCINOMA, METASTATIC TO BRAIN (GAMMA KNIFE X 1 08/19) AND LUNGS; S/P LEFT NEPHRECTOMY 2010. SEVERAL CHEMO REGIMENS DR Lissa MONTES DE OCA AT [facility]; ADMITTED [facility] 05/22, BX OF LEFT CLAVICLE AND RT FOOT SHGOWED METASTATIC RENAL CELL CA, RECEIVED RAD TX 06/22; HYPERCALCEMIA TREATED BY ONCO WITH ZOMETA 06/22 CAD--S/P PCI/STENTS X 9 TOTAL (DR MONTES DE OCA) 09/17, 01/19 HISTORY OF BRAIN METASTASIS, S/P GAMMA KNIFE X 1 08/19) TYPE 2 DM HTN HYPERLIPIDEMIA MALIGNANT PLEURAL EFFUSION LEFT, HAD PLEURIX CATHETER X 2 MO 2019 Surgical History CORONARY STENTS X 9 [id number] THUMB 1986 LEFT NEPHRECTOMY 2011 THORACENTESIS, PLEURIX CATHETER X2 MONTHS 12/19 Family History FATHER: , DIAGNOSED WITH OTHER SPECIFIED CONDITIONS INFLUENCING HEALTH STATUS MOTHER: , OTHER SPECIFIED CONDITIONS INFLUENCING HEALTH STATUS 1 BROTHER(S) , 4 SISTER(S) . 1DAUGHTER(S) . MOTHER PASSED HEART DISEASE, FATHER PANCREATIC CANCER, SISTER PASSED PANCREATIC CANCERBROTHER PASSED KIDNEY INFECTION. Social History * Smoker: former Smoker Alcohol: Denies Drugs: denies A-FIB/CHADSVASC A-FIB History Current/History of A-Fib/PAF?: No Current PO Anticoag Therapy: No Review of Systems Constitutional: Reports: Weakness; Denies: Chills, Fever ENT: Denies: Head Aches, Ear Pain Skin: Denies: Rash, Lesions Pulmonary: Reports: Dyspnea, Cough, Pleuritic Chest Pain Cardiovascular: Denies: Chest Pain, Palpitations Gastrointestinal: Denies: Nausea, Vomiting Genitourinary: Denies: Dysuria Hematologic: Denies: Bruising Endocrine: Denies: Polydipsia, Polyphagia Musculoskeletal: Reports: Back Pain Neurological: Denies: Weakness, Numbness Psych: Reports: Mood Normal Physical Examination General Exam: Positive: Alert, Cooperative ENT Exam: Positive: Atraumatic Neck Exam: Positive: Supple; Negative: JVD Chest Exam: Positive: Diminished Heart Exam: Positive: Rate Normal Telemetry: Positive: No significant arrhythmia Abdomen Exam: Positive: Normal bowel sounds Extremity Exam: Positive: Clubbing; Negative: Cyanosis Skin Exam: Positive: Nl turgor and temperature Neuro Exam: Positive: Normal Gait, Strength at 5/5 X4 ext, Cranial Nerves 3-12 NL Psych Exam: Positive: Mental status NL Vital Signs Vital Signs Date Time Temp Pulse Resp B/P (MAP) Pulse Ox O2 Delivery O2 Flow Rate FiO2 10/01/19 17:42 97.3 67 20 108/59 (75) 97 Room Air Laboratory Data Labs 24H Laboratory Tests 2 10/01/19 15:41: Immature Granulocyte % (Auto) 0.3, Neutrophils (%) (Auto) 83.7H, Lymphocytes (%) (Auto) 9.0L, Monocytes (%) (Auto) 6.3H, Eosinophils (%) (Auto) 0.4, Basophils ( %) (Auto) 0.3, Neutrophils # (Auto) 6.2, Lymphocytes # (Auto) 0.7L, Monocytes # (Auto) 0.5, Eosinophils # (Auto) 0.0, Basophils # (Auto) 0.0, Nucleated Red Blood Cells % (auto) 0.0, Prothrombin Time 13.8, Prothromb Time International Ratio 1.09, Activated Partial Thromboplast Time 26.3, D-Dimer, Quantitative 566.44H, Anion Gap 6L, Glomerular Filtration Rate > 60.0, Calcium Level 10.2, Total Bilirubin 0.8, Direct Bilirubin 0.2, Aspartate Amino Transf (AST/SGOT) 12, Alanine Aminotransferase (ALT/SGPT) 24, Alkaline Phosphatase 97, Total Protein 6.7, Albumin 2.9L, Albumin/Globulin Ratio 0.8 CBC/BMP Laboratory Tests 10/01/19 15:41 Assessment/Plan Patient is 69 years old male with past medical history of hypertension, COPD, stage III, coronary artery disease status post multiple stents, diabetes mellitus type 2, metastatic renal carcinoma status post left nephrectomy, history of metastases to lungs and brain, status post, radiation to brain presented with chief complaints of hemoptysis. Of note patient was diagnosed with renal cell carcinoma in 2010 and since that time he's been on the multiple courses of chemotherapy and radiation. He recently finished the course of chemotherapy. Patient stated that for past few days he has been having increased shortness of breath with cough and hemoptysis. Also patient stated that he has been having severe right posterior ribs chest pain at the level of T6-T10. Problems (1) Pneumonia Status: Acute Problem Text: CTA showed right lung multifocal pneumonia superimposed by underlying lung malignancy. Differential diagnosis includes post obstructive pneumonia versus community acquired We'll start antibiotic therapy with ceftriaxone IV, doxycycline IV Incentive spirometry Inhalers Follow-up with oncologist in the outpatient settings (2) Hemoptysis Status: Acute Problem Text: Most likely secondary to malignancy superimposed with pneumonia Will start antibiotics We'll monitor H&H every 6 hours Hemoglobin is currently stable (3) Chest pain Status: Chronic Problem Text: Posterior rib cage pain at the level of T8-T10 Secondary to possible metastasis Pain management (4) HTN (hypertension) Status: Chronic Problem Text: Continue home cardioprotective medication Blood pressures under control (5) Diabetes mellitus Status: Chronic Problem Text: Insulin sliding scale Detemir twice a day (6) CAD (coronary artery disease) Status: Chronic Problem Text: We'll continue aspirin, Plavix on hold due to hemoptysis Patient denied chest pain, EKG negative for acute ischemic changes Plan / VTE VTE Prophylaxis Ordered?: Yes SUKHDEEP DRISCOLL DO October 01, 2019 18:52
[2019-10-01] MEDS ORDERED: ONDANSETRON 4 MG ORAL DISINTEGRATING TAB PO PRN (19:00)
[2019-10-01] MEDS ORDERED: NYSTATIN 100,000 UNITS/GM TOPICAL PWD 15 GM TOP PRN (19:00)
[2019-10-01] MEDS ORDERED: NITROGLYCERIN 0.4 MG SUBL TABLET SL PRN (19:00)
--- NOTE | 2019-10-01 19:54 | ECGEPIP ---
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
[2019-10-01] MEDS: traMADol 50 MG TAB PO SCH (20:53)
[2019-10-01] MEDS ORDERED: HumaLOG INSULIN (NovoLOG) PER UNIT SC SCH (21:00)
[2019-10-01] MEDS ORDERED: ATORVASTATIN 20 MG TAB PO SCH (21:00)
[2019-10-01] MEDS: IPRATROPIUM 0.5MG/ALBUTEROL 2.5MG INH SOL UD 3ML (DUONEB)(J7620) INH SCH ×2 (21:14→23:48)
[2019-10-01 22:15] VITALS: BP 143/72
[2019-10-01] MEDS ORDERED: PILL CUTTER 1 EACH XX PRN (22:30)
[2019-10-01] MEDS: MAGNESIUM GLUCONATE 500 MG TAB PO SCH (23:24)
[2019-10-01] MEDS: HEPARIN SOD (PORCINE) 5000UNITS/ML VIAL (J1644 PER 1000UNITS) SC SCH (23:24)
[2019-10-01] MEDS: METOPROLOL TART 50 MG TAB PO SCH (23:25)
[2019-10-02] MEDS: traMADol 50 MG TAB PO SCH ×3 (03:11→13:22)
[2019-10-02] MEDS: IPRATROPIUM 0.5MG/ALBUTEROL 2.5MG INH SOL UD 3ML (DUONEB)(J7620) INH SCH ×2 (04:00→07:14)
[2019-10-02 06:00] VITALS: BP 110/58
[2019-10-02] MEDS ORDERED: DOXYCYCLINE HYCLATE 100 MG in D5W MINI-BAG PLUS 100 ML IV SCH (06:00)
[2019-10-02 06:05] LABS: HEMATOCRIT 35.1 % (42.0-52.0); HEMOGLOBIN 10.8 g/dl (13.5-17.5); MEAN CORPUSCULAR HEMOGLOBIN 24.2 pg (27.0-33.0); MEAN CORPUSCULAR HGB CONC 30.8 g/dl (32.0-36.5); MEAN CORPUSCULAR VOLUME 78.5 fl (80.0-96.0); PLATELET COUNT, AUTOMATED 252 10^3/uL (150-450); RED BLOOD COUNT 4.47 10^6/uL (4.30-6.10); WHITE BLOOD COUNT 4.8 10^3/uL (4.0-10.0)
[2019-10-02 06:41] LABS: ALBUMIN 2.3 GM/DL (3.2-5.2); ALT/SGPT 18 U/L (12-78); BILIRUBIN,TOTAL 0.4 MG/DL (0.2-1.0); BLOOD UREA NITROGEN 9 MG/DL (7-18); CALCIUM LEVEL 9.6 MG/DL (8.8-10.2); CARBON DIOXIDE LEVEL 22 MEQ/L (21-32); CHLORIDE LEVEL 106 MEQ/L (98-107); CREATININE FOR GFR 0.72 MG/DL (0.70-1.30); GLOMERULAR FILTRATION RATE > 60.0 (>49); GLUCOSE, FASTING 196 MG/DL (70-100); MAGNESIUM LEVEL 1.9 MG/DL (1.8-2.4); POTASSIUM SERUM 3.8 MEQ/L (3.5-5.1); SODIUM LEVEL 135 MEQ/L (136-145); TOTAL PROTEIN 5.4 GM/DL (6.4-8.2)
[2019-10-02] MEDS ORDERED: CYANOCOBALAMIN 500 MCG TAB PO SCH (09:00)
[2019-10-02] MEDS ORDERED: PANTOPRAZOLE 40MG TAB (PROTONIX) PO SCH (09:00)
[2019-10-02] MEDS ORDERED: CALCITONIN NASAL SPRAY 3.7 ML BTL SCH (09:00)
[2019-10-02] MEDS ORDERED: ASPIRIN 81 MG ENTERIC TAB PO SCH (09:00)
[2019-10-02] MEDS ORDERED: amLODIPine 10 MG TAB PO SCH (09:00)
[2019-10-02] MEDS ORDERED: LEVEMIR (INSULIN DETEMIR) 1 UNITS/0.01ML SC SCH (09:00)
[2019-10-02] MEDS: HumaLOG INSULIN (NovoLOG) PER UNIT SC SCH ×2 (09:31→13:21)
[2019-10-02] MEDS: HEPARIN SOD (PORCINE) 5000UNITS/ML VIAL (J1644 PER 1000UNITS) SC SCH (09:32)
[2019-10-02] MEDS: MAGNESIUM GLUCONATE 500 MG TAB PO SCH (09:33)
[2019-10-02 09:35] VITALS: BP 106/62
[2019-10-02] MEDS: METOPROLOL TART 50 MG TAB PO SCH (09:35)
[2019-10-02] MEDS ORDERED: TRAM50TA2 PO (11:48)
[2019-10-02] MEDS ORDERED: VENTAER INH (11:52)
[2019-10-02] MEDS ORDERED: DOXY-350 PO (11:52)
[2019-10-02] MEDS ORDERED: SPIR1CAP INH (11:52)
[2019-10-02] MEDS ORDERED: AUGM875T28 PO (11:52)
[2019-10-02] MEDS ORDERED: PRED5PAK2 PO (11:53)
--- NOTE | 2019-10-02 16:06 | DS.PDOC ---
Discharge Summary General Date of Admission October 01, 2019 at 18:23 Date of Discharge 05/08/19 Discharge Summary PROCEDURES PERFORMED DURING STAY: [None]. ADMITTING DIAGNOSES: Pneumonia Hemoptysis Chest pain HTN (hypertension) Diabetes mellitus CAD (coronary artery disease) DISCHARGE DIAGNOSES: Pneumonia Hemoptysis Chest pain HTN (hypertension) Diabetes mellitus CAD (coronary artery disease) COMPLICATIONS/CHIEF COMPLAINT: Cad,Ckd Stage Iii, Pneumonia, Metastasis To Lung. 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 Of note patient was diagnosed with renal cell carcinoma in 2010 and since that time he's been on the multiple courses of chemotherapy and radiation. He recently finished the course of chemotherapy. Patient stated that for past few days he has been having increased shortness of breath with cough and hemoptysis. Also patient stated that he has been having severe right posterior ribs chest pain at the level of T6-T10. HOSPITAL COURSE: During hospital stay following issues addressed (1) Pneumonia CTA showed right lung multifocal pneumonia superimposed by underlying lung malignancy. Differential diagnosis includes post obstructive pneumonia versus community acquired antibiotic therapy with ceftriaxone IV, doxycycline IV. Patient will be discharged on the by mouth antibiotics Incentive spirometry Inhalers Follow-up with oncologist in the outpatient settings (2) Hemoptysis Most likely secondary to malignancy superimposed with pneumonia Will start antibiotics We'll monitor H&H every 6 hours Hemoglobin is currently stable (3) Chest pain Status: Chronic Problem Text: Posterior rib cage pain at the level of T8-T10 Secondary to possible metastasis Pain management (4) HTN (hypertension) Status: Chronic Problem Text: Continue home cardioprotective medication Blood pressures under control (5) Diabetes mellitus Status: Chronic Problem Text: Insulin sliding scale Detemir twice a day (6) CAD (coronary artery disease) Status: Chronic Problem Text: We'll continue aspirin, Plavix on hold due to hemoptysis Patient denied chest pain, EKG negative for acute ischemic changes DISCHARGE MEDICATIONS: Please see below. ALLERGIES: Please see below. PHYSICAL EXAMINATION ON DISCHARGE: VITAL SIGNS: Please see below. General Exam: Positive: Alert, Cooperative ENT Exam: Positive: Atraumatic Neck Exam: Positive: Supple; Negative: JVD Chest Exam: Positive: Diminished Heart Exam: Positive: Rate Normal Telemetry: Positive: No significant arrhythmia Abdomen Exam: Positive: Normal bowel sounds Extremity Exam: Positive: Clubbing; Negative: Cyanosis Skin Exam: Positive: Nl turgor and temperature Neuro Exam: Positive: Normal Gait, Strength at 5/5 X4 ext, Cranial Nerves 3-12 NL Psych Exam: Positive: Mental status NL LABORATORY DATA: Please see below. IMAGING: [facility] NAME: ANNY PIKE DATE OF : 1950 BUSINESS NUMBER: [id number] AGE: 69 SEX: M REPORT #: [id number] ROOM: ED TECHNOLOGIST: STEPHEN DOCTOR: BUCKY AWAD PA-C Ordered for Date&Time: 10/01/19 1649 cc: [~ rep ct ivnm] Service Date&Time: This report is in Signed status. Interpretation performed by [facility]. Thank you for having your radiology procedures performed at [facility] RADIOLOGY REPORT Date&Time printed: [~ rep prt dt last] [~ rep prt tm last] Page 2 of 2 [place] [id number] RADIOLOGY REPORT This report is in Signed status. Interpretation performed by [facility]. Thank you for having your radiology procedures performed at [facility] RADIOLOGY REPORT Date&Time printed: [~ rep prt dt last] [~ rep prt tm last] Page 1 of 2 PROCEDURE INFORMATION: Exam: CT Angiography Chest With Contrast Exam date and time: 10/01/2019 4:49 PM Age: 69 years old Clinical indication: Other: Hemoptysis; Additional info: Chest pain/hemoptysis TECHNIQUE: Imaging protocol: Computed tomographic angiography of the chest with intravenous contrast. 3D rendering: MIP and/or 3D reconstructed images were created by the technologist. Radiation optimization: All CT scans at this facility use at least one of these dose optimization techniques: automated exposure control; mA and/or kV adjustment per patient size (includes targeted exams where dose is matched to clinical indication); or iterative reconstruction. Contrast material: ISOVUE 370; Contrast volume: 75 ml; Contrast route: IV; COMPARISON: CT ANGIO CHEST 05/23/2019 1:02 PM FINDINGS: Pulmonary arteries: No filling defects within the main, lobar, segmental, and subsegmental pulmonary arterial branches. Aorta: Mild atherosclerotic calcifications of the aorta. No evidence of dissection or aneurysm. Lungs: Multiple large masses throughout the right upper and lower lobes, largest singular mass in the right upper lobe measuring 7.5 cm. Prominent scattered areas of consolidation and ground-glass opacities throughout the right lung. Pleural space: Small right pleural effusion. Heart: Mild to moderate calcifications of the coronary arteries. Lymph nodes: Several scattered prominent mediastinal lymph nodes, example subcarinal node measuring 1.3 cm short axis. Bones/joints: Multilevel degenerative changes of the visualized spine. No acute fracture. Soft tissues: Unremarkable. IMPRESSION: 1. Multiple large masses throughout the right upper and lower lobes, largest singular mass in the right upper lobe measuring 7.5 cm, highly concerning for primary lung neoplasms. Several scattered prominent mediastinal lymph nodes is concerning for local spread of disease. Recommend thoracic surgery consultation. 2. Prominent scattered areas of consolidation and ground-glass opacities throughout the right lung. Superimposed multifocal pneumonia cannot be excluded. 3. Small right pleural effusion. 4. No CTA evidence of pulmonary embolism. 5. Other chronic findings, as above. Electronically signed by: Andrzej Santos On 10/01/2019 17:24:49 PM DD: ANDRZEJ SANTOS MD 10/01/19 1649 DT: DAVID 10/01/191723 DS: MITCH 10/01/191723 [~ rep ct labl] PROGNOSIS: Guarded ACTIVITY: [As tolerated]. DIET: Cardiac DISPOSITION: 01 Home, Self-Care. DISCHARGE INSTRUCTIONS: Continue incentive spirometry ITEMS TO FOLLOWUP ON ON OUTPATIENT: With oncologist and PCP DISCHARGE CONDITION: [Stable]. TIME SPENT ON DISCHARGE: Greater than 20 minutes. Vital Signs/I&Os Vital Signs Date Time Temp Pulse Resp B/P (MAP) Pulse Ox O2 Delivery O2 Flow Rate FiO2 10/02/19 13:22 18 10/02/19 09:35 90 106/62 10/02/19 06:00 97.8 94 Room Air I&O- Last 24 Hours up to 6 AM 10/02/19 06:00 Intake Total 1500 ml Balance 1500 ml Laboratory Data Labs 24H Laboratory Tests 2 10/01/19 18:58: 10/01/19 22:25: Bedside Glucose (Misc Panel) 226H 10/02/19 03:14: Methicillin-Resist S.aureus DNA PCR NOT DETECTED 10/02/19 05:22: Nucleated Red Blood Cells % (auto) 0.0, Anion Gap 7L, Glomerular Filtration Rate > 60.0, Calcium Level 9.6, Magnesium Level 1.9, Total Bilirubin 0.4, Aspartate Amino Transf (AST/SGOT) 10, Alanine Aminotransferase (ALT/SGPT) 18, Alkaline Phosphatase 83, Total Protein 5.4L, Albumin 2.3#L, Albumin/Globulin Ratio 0.7 10/02/19 11:09: Bedside Glucose (Misc Panel) 212H CBC/BMP Laboratory Tests 10/02/19 05:22 FSBS Laboratory Tests Test 10/01/19 22:25 10/02/19 11:09 Range/Units Bedside Glucose (Misc Panel) 226 212 80-115 MG/DL Microbiology Microbiology 10/02/19 Gram Stain - Final, Complete 10/02/19 Sputum Culture - Final, Complete 10/01/19 Blood Culture, Received Pending Discharge Medications Scheduled Amlodipine Besylate (Amlodipine Besylate) 10 Mg Tab, 10 MG PO DAILY, (Reported) Amoxicillin/Potassium Clav (Augmentin 875-125 Tablet) 1 Each Tablet, 1 TAB PO BID Aspirin (Aspir 81) 81 Mg Tab, 81 MG PO DAILY, (Reported) Atorvastatin Calcium (Atorvastatin Calcium) 20 Mg Tab, 20 MG PO QHS, (Reported) Calcitonin [place] (Calcitonin-[place]) 3.7 Ml [place].pump, 1 SPRAYS NA DAILY one spray to one nostril daily; alternate sides every other day Cholecalciferol (Vitamin D3) (Vitamin D3) 1,000 Unit Tablet, 5,000 UNITS PO DAILY, (Reported) Cyanocobalamin (Vitamin B-12) (Vitamin B-12) 1,000 Mcg Capsule, 1,000 MCG PO DAILY, (Reported) Doxycycline Monohydrate (Doxycycline) 100 Mg Capsule, 100 MG PO BID Glutamine (l-Glutamine) 1 Pow Pow, 1 DOSE PO DAILY, (Reported) Guaifenesin/Pseudoephedrne HCl (Mucinex D ER 600-60 mg Tablet) 1 Each Tab.er.12h, 1 TAB PO BID, (Reported) Insulin Aspart (Novolog Flexpen) 100 Unit/Ml Inj, 1 DOSE SC BID, (Reported) PER SLIDING SCALE AT LUNCH AND DINNER Insulin Glargine,Hum.rec.anlog (Lantus Solostar) 100 Unit/Ml Inj, 20 UNITS SC DAILY, (Reported) Magnesium Glycinate (Mag Glycinate) 100 Mg Tablet, 400 MG PO DAILY, (Reported) Metoprolol Tartrate (Metoprolol Tartrate) 50 Mg Tablet, 50 MG PO BID, (Reported) [place]-3 Fatty Acids/Fish Oil (Fish Oil 1,000 mg Capsule) 1 Each Capsule, 1,000 MG PO DAILY, (Reported) Pantoprazole Sodium (Pantoprazole Sodium) 40 Mg Tab, 40 MG PO DAILY, (Reported) Prednisone (Prednisone) 5 Mg Tab.ds.pk, 0 PO ASDIRECTED 6 day dose pack taper Ubidecarenone (Co Q-10) 200 Mg Cap, 200 MG PO DAILY, (Reported) Scheduled PRN Albuterol Sulfate (Ventolin Hfa) 18 Gm Hfa.aer.ad, 2 PUFF INH Q4-6HP PRN for wheezing Nitroglycerin (Nitroglycerin) 0.4 Mg Sub, 0.4 MG SL Q5MP PRN for CHEST PAIN, (Reported) Nystatin (Nystatin Powder) 100,000 Unit/Gm Pow, 1 DOSE TOP DAILY PRN for RASH/ITCHING, (Reported) LEGS/GROIN AREA Ondansetron (Ondansetron Odt) 4 Mg Tab.rapdis, 4 MG PO Q8HP PRN for NAUSEA, (Reported) Tiotropium [place] (Spiriva) 18 Mcg Cap.w.dev, 1 CAP INH QID PRN for shortness of breath Tramadol HCl (Tramadol HCl) 50 Mg Tablet, 50 MG PO Q6H PRN for pain Allergies Coded Allergies: TAPE (Verified Allergy, Unknown, WHITE ADHESIVE TAPE, 05/23/19) SUKHDEEP DRISCOLL DO Oct 02, 2019 16:06
[2019-10-02] MEDS ORDERED: cefTRIAXone SOD 1 GM in D5W MINI-BAG PLUS 50 ML IV SCH (17:00)
== END 2019-10-02 13:55 | disposition home or self-care (01) | DRG 194 ==
LOC: M ED 14:13 → M ED INP 18:23 → M MSPAV 22:15
PROVIDERS: ADMIT Internal Medicine; ATTEND Internal Medicine
DX: J18.9 Pneumonia, unspecified organism (principal); C78.01 Secondary malignant neoplasm of right lung; C79.31 Secondary malignant neoplasm of brain; C64.2 Malignant neoplasm of left kidney, except renal pelvis; J91.0 Malignant pleural effusion; R04.2 Hemoptysis; C79.51 Secondary malignant neoplasm of bone; I25.10 Atherosclerotic heart disease of native coronary artery without angina pectoris; I12.9 Hypertensive chronic kidney disease with stage 1 through stage 4 chronic kidney disease, or unspecified chronic kidney disease; J44.9 Chronic obstructive pulmonary disease, unspecified; N18.3 Chronic kidney disease, stage 3 (moderate); E11.22 Type 2 diabetes mellitus with diabetic chronic kidney disease; Z90.5 Acquired absence of kidney; Z79.82 Long term (current) use of aspirin; Z79.4 Long term (current) use of insulin; Z79.899 Other long term (current) drug therapy; Z91.018 Allergy to other foods; Z95.5 Presence of coronary angioplasty implant and graft; Z87.891 Personal history of nicotine dependence; Z92.21 Personal history of antineoplastic chemotherapy; Z92.3 Personal history of irradiation

== ENCOUNTER 2019-10-06 22:23 | Emergency (ER) | payer MEDICARE, BC, OTHER ==
[~2019-10-06] VITALS: Ht 177.8 cm; Wt 86.8 kg
[~2019-10-06 22:23] MED LIST changes: -AMLO10TA5 PO; +AMLO1TAB25 PO; -ASPI81TA85 PO; +ASPI81TA86 PO; +AUGM875T28 PO; +B-12100010 PO; +D31000TA2 PO; +DOXY-350 PO; -METF-700 PO; +METF-818 PO; +PANT40TA29 PO; -PANT40TA3 PO; +PRED5PAK2 PO; +SPIR1CAP INH; +VENTAER INH
[2019-10-06] MEDS ORDERED: MORPHINE 4 MG/ML 1ML VIAL/SYRINGE (J2270) IV ONE (23:00)
[2019-10-06 23:07] LABS: BASO % 0.4 % (0.0-1.0); EOS % 0.9 % (0.0-3.0); HEMATOCRIT 37.2 % (42.0-52.0); HEMOGLOBIN 11.5 g/dl (13.5-17.5); LYMPH # 0.4 10^3/uL (1.5-5.0); MEAN CORPUSCULAR HEMOGLOBIN 24.1 pg (27.0-33.0); MEAN CORPUSCULAR HGB CONC 30.9 g/dl (32.0-36.5); MONO # 0.4 10^3/uL (0.0-0.8); MONO % 7.9 % (0.0-5.0); NEUTROPHILS # 3.8 10^3/uL (1.5-8.5); NEUTROPHILS % 81.6 % (36.0-66.0); PLATELET COUNT, AUTOMATED 286 10^3/uL (150-450); RED BLOOD COUNT 4.77 10^6/uL (4.30-6.10); WHITE BLOOD COUNT 4.7 10^3/uL (4.0-10.0)
[2019-10-06 23:17] LABS: INR 1.1; PROTHROMBIN TIME 13.9 SECONDS (11.8-14.0)
[2019-10-06 23:18] LABS: PARTIAL THROMBOPLASTIN TIME 27.4 SECONDS (25.0-38.4)
[2019-10-06 23:35] LABS: BLOOD UREA NITROGEN 9 MG/DL (7-18); CALCIUM LEVEL 10.2 MG/DL (8.8-10.2); CARBON DIOXIDE LEVEL 24 MEQ/L (21-32); CHLORIDE LEVEL 102 MEQ/L (98-107); CREATININE FOR GFR 0.85 MG/DL (0.70-1.30); GLOMERULAR FILTRATION RATE > 60.0 (>49); GLUCOSE, FASTING 163 MG/DL (70-100); POTASSIUM SERUM 3.6 MEQ/L (3.5-5.1); SODIUM LEVEL 136 MEQ/L (136-145)
[2019-10-06 23:45] LABS: ALBUMIN 2.5 GM/DL (3.2-5.2); ALT/SGPT 18 U/L (12-78); BILIRUBIN,DIRECT 0.1 MG/DL (0.0-0.2); BILIRUBIN,TOTAL 0.5 MG/DL (0.2-1.0); CK-MB VALUE MASS 1.3 NG/ML (<3.6); CPK CREATINE PHOSPHOKINASE 23 U/L (39-308); FREE T4 1.39 NG/DL (0.76-1.46); LIPASE 54 U/L (73-393); MB/CK RELATIVE INDEX 5.65 (< OR =4); TOTAL PROTEIN 6.3 GM/DL (6.4-8.2); TROPONIN I < 0.02 NG/ML (< 0.10)
[2019-10-07] MEDS ORDERED: ISOVUE-370 76% 100ML VIAL As Ordered ONE (00:03)
--- NOTE | 2019-10-07 00:39 | REPVR ---
PROCEDURE INFORMATION: Exam: CT Angiography Chest With Contrast Exam date and time: 10/06/2019 11:50 PM Age: 69 years old Clinical indication: Right-sided chest pain; Patient HX: Known right lung cancer; Additional info: SOB TECHNIQUE: Imaging protocol: Computed tomographic angiography of the chest with intravenous contrast. 3D rendering: MIP and/or 3D reconstructed images were created by the technologist. Radiation optimization: All CT scans at this facility use at least one of these dose optimization techniques: automated exposure control; mA and/or kV adjustment per patient size (includes targeted exams where dose is matched to clinical indication); or iterative reconstruction. Contrast material: ISO; Contrast volume: 75 ml; Contrast route: HAND; COMPARISON: CT ANGIO CHEST 10/01/2019 4:54 PM FINDINGS: Pulmonary arteries: No pulmonary embolism. Aorta: There is no thoracic aortic aneurysm, pseudoaneurysm, intramural hematoma, penetrating atherosclerotic ulcer, or dissection. There are mild atherosclerotic calcifications. Tracheobronchial tree: Intact and patent. Lungs: There are multiple pulmonary masses in the right upper lobe and right lower lobe, the largest in the right upper lobe measuring 10.1 cm, which are stable compared to the prior CTA chest on 10/01/2019 allowing for differences in technique of measurement. There is ground-glass opacification in the right upper lobe and right lower lobe, which is also stable compared to the prior CTA chest on 10/01/2019. Pleural space: There is a trace right pleural effusion that has decreased in size compared to the prior CTA chest on 10/01/2019. No pneumothorax is noted. Heart: No cardiomegaly. No pericardial effusion. The ratio of the diameter of the right ventricle to the diameter of the left ventricle measures less than 1, which is within normal limits and there is no evidence for a right ventricular strain. There are coronary artery calcifications. Lymph nodes: There is a 13 mm right paratracheal lymph node, a 16 mm right hilar lymph node, and an 11 mm subcarinal lymph node, which are stable compared to the prior CTA chest on 10/01/2019. Bones/joints: There is a lytic destructive lesion in the medial end of the left clavicle, which is similar in appearance compared to the prior CTA chest on 10/01/2019. No other suspicious osteolytic or osteoblastic lesions are noted. Soft tissues: There is edema in the subcutaneous tissues adjacent to the medial end of the left clavicle. IMPRESSION: 1. No pulmonary embolism. 2. Pulmonary masses in the right upper lobe and right lower lobe, which are stable compared to the prior CTA chest on 10/01/2019 and compatible with malignancy. Fleischner follow up recommendations for incidental nodules are not indicated. Follow up per patient's medical condition. 3. Ground-glass opacities in the right upper lobe and right lower lobe, which are stable compared to the prior CTA chest on 10/01/2019. 4. Lytic destructive lesion in the medial end of the left clavicle, which is stable compared to the prior CTA chest on 10/01/2019, and may represent a lytic metastasis. 5. Right paratracheal, subcarinal, and right hilar lymphadenopathy, which is stable compared to the prior CTA chest on 10/01/2019. 6. Trace right pleural effusion that has decreased in size compared to the prior CTA chest on 10/01/2019. Electronically signed by: Lamine Estrada On 10/07/2019 00:39:25 AM
[2019-10-07] MEDS ORDERED: NORCO 5/325MG TABLET (BULK FOR ED) PO ONE (01:15)
[2019-10-07] MEDS ORDERED: VENTAER INH (01:19)
[2019-10-07] MEDS ORDERED: AUGM875T28 PO (01:19)
[2019-10-07] MEDS ORDERED: PRED5TA PO (01:19)
[2019-10-07] MEDS ORDERED: ATOR40TA75 PO (01:19)
[2019-10-07] MEDS ORDERED: TIOT18INH INH (01:19)
[2019-10-07] MEDS ORDERED: TRAM50TA2 PO (01:19)
[2019-10-07] MEDS ORDERED: CALC20SPR (01:19)
[2019-10-07] MEDS ORDERED: DOXY100C37 PO (01:22)
[2019-10-07 01:30] VITALS: BP 124/63
--- NOTE | 2019-10-07 06:27 | ECGEPIP ---
[facility] - ED Test Date: 2019-10-06 Pat Name: ANNY PIKE Department: Room: - Gender: Male Service Dispatcher: lizzette : 1950 Requested By: ROMAN ONTIVEROS Order Number: [id number] Reading MD: Esther Meadows Measurements Intervals [place] Rate: 104 P: 65 VA: 169 QRS: -36 QRSD: 97 T: 67 QT: 343 QTc: 452 Interpretive Statements SINUS TACHYCARDIA LEFTWARD AXIS PATTERN CONSISTENT WITH PULMONARY DISEASE INFERIOR MYOCARDIAL INFARCTION, PROBABLY OLD SEPTAL WALL SD, OF INDETERMINATE AGE NONSPECIFIC ST T WAVE CHANGES CW 10/01/[address] T WAVE CHANGES Electronically Signed on 10-07-2019 6:27:08 EDT by Esther Meadows
--- NOTE | 2019-10-07 06:35 | ED PDOC ---
Post-Departure Follow-Up dr burkett faxed formal report o cta chest for fu Esther Palomo MD Oct 07, 2019 06:35
--- NOTE | 2019-10-09 10:04 | REP ---
REASON FOR EXAM: Chest pain. COMPARISON: Multiple, the latest 10/01/2019. Right upper and right lower lobe opacities are noted, status quo. The technique utilized in obtaining the radiograph has magnified the cardiac silhouette and accentuated the interstitial markings. There are no new abnormal opacities. The heart is not enlarged and the pleural angles are sharp. There is no change in the osseous structures. IMPRESSION: No change in appearance of the right upper and right lower lobe opacities. Electronically Signed by Baldev Goldberg DO 10/09/2019 10:56 A
== END 2019-10-07 01:50 | disposition home or self-care (01) ==
LOC: M ED 22:23
DX: C78.00 Secondary malignant neoplasm of unspecified lung (principal); J44.9 Chronic obstructive pulmonary disease, unspecified; I10 Essential (primary) hypertension; N18.9 Chronic kidney disease, unspecified; Z95.5 Presence of coronary angioplasty implant and graft; Z79.899 Other long term (current) drug therapy; Z79.82 Long term (current) use of aspirin; Z79.4 Long term (current) use of insulin; Z91.048 Other nonmedicinal substance allergy status; Z87.891 Personal history of nicotine dependence
CPT/HCPCS: 36415; 71045; 71275; 80048; 80076; 82550; 82553; 83690; 84439; 84443; 84484; 85025; 85610; 85730; 87040; 93005; 93041; 94760; 99285; Q9967

== ENCOUNTER → 2019-11-07 | Outpatient (REF) | payer MEDICARE, OTHER ==
[~2019-11-07] MED LIST changes: +ATOR40TA75 PO; +DOXY100C37 PO; +PRED5TA PO; +TIOT18INH INH
[2019-11-07 18:46] LABS: ALBUMIN 2.2 GM/DL (3.2-5.2); ALT/SGPT 12 U/L (12-78); BILIRUBIN,TOTAL 0.3 MG/DL (0.2-1.0); BLOOD UREA NITROGEN 12 MG/DL (7-18); CALCIUM LEVEL 11.1 MG/DL (8.8-10.2); CARBON DIOXIDE LEVEL 20 MEQ/L (21-32); CHLORIDE LEVEL 106 MEQ/L (98-107); CREATININE FOR GFR 1.07 MG/DL (0.70-1.30); GLOMERULAR FILTRATION RATE > 60.0 (>49); GLUCOSE, FASTING 151 MG/DL (70-100); POTASSIUM SERUM 3.6 MEQ/L (3.5-5.1); SODIUM LEVEL 137 MEQ/L (136-145); TOTAL PROTEIN 6.5 GM/DL (6.4-8.2)
== END ==
LOC: M LABDRWAD 17:45
PROVIDERS: ATTEND Physician Assistant Medical
DX: C64.9 Malignant neoplasm of unspecified kidney, except renal pelvis (principal); E83.52 Hypercalcemia